=== PATIENT | female | born 1935 | race Caucasian/White ===

== ENCOUNTER → 2017-02-24 | Outpatient (CLI) | payer MEDICARE, BC ==
[~2017-02-24] MED LIST: 1-ME1LIQ PO; ACET1TAB86 PO; AMLO2.5T PO; ASPI-110 PO; ATEN1TAB74 PO; ATEN50TA; ATEN50TA PO; CALTTAB PO; CLOP75TA PO; COQ-100C5 PO; CYCL1TAB29; DONE1TAB3 PO; DONE1TAB63 PO; ESCI10TA PO; EXEN1INJ SQ; FENO160T; FENO50TA PO; FINA5TAB2 PO; GABA300C5; GABA600T; GABA600T PO; HYDR-3516; HYDR-3516 PO; HYDR-3583 PO; KRIL1CAP10 PO; LEVO1TAB50 PO; LOSA50TA; LOSA50TA PO; METF850T PO; NITR.4 SL; PANT40TA3 PO; POTA20TA5 PO; PROBCAP11 PO; RANI150T PO; RANI300T PO; ROSU1TAB8 PO; SENN1TAB PO; SIMV20TA; SIMV20TA PO; STOO100C PO; TAMS0.4C4 PO; TEMA15CA PO; TIOT1AER INH; TRAM50TA; TRAM50TA PO; VITA10004 PO; VITA200017 PO; ZETI10TA5 PO; ZOLP10TA3 PO
[2017-02-24 11:08] LABS: BLOOD, URINE NEG (NEG); COMMENT (UR) CULT NOT INDICATED; CULTURE IF INDICATED CULT NOT INDICATED; GLUCOSE,URINE NEG (NEG); KETONE, URINE NEG (NEG); NITRITE,URINE NEG (NEG); PH, URINE 5.5 (5.0-8.5); SQUAMOUS EPITHELIAL CELL URINE <1 /hpf (0-5); URINE COLOR YELLOW (YELLW/STRAW)
[2017-02-24 11:14] LABS: APTT (PATIENT) 27.1 SEC (24.3-30.1); PROTHROMBIN TIME - PATIENT 10.7 SEC (9.8-11.6)
[2017-02-24 11:19] LABS: AUTOMATED NEUTROPHIL # 2.5 TH/MM3 (1.8-7.7); BASOPHIL % 0.8 % (0.0-2.0); EOSINOPHIL # 0.3 TH/MM3 (0-0.4); HEMATOCRIT 41.8 % (35.0-46.0); HEMO FLAGS DIFF FINAL; LYMPH % 29.6 % (9.0-44.0); LYMPHOCYTE # 1.4 TH/MM3 (1.0-4.8); MEAN CELL VOLUME 97.5 FL (80.0-100.0); MEAN CORPUSCULAR HGB CONC 33.8 % (32.0-36.0); MONO % 11.6 % (0.0-8.0); PLATELET COUNT 181 TH/MM3 (150-450); RED BLOOD COUNT 4.29 MIL/MM3 (4.00-5.30); RED CELL DISTRIBUTION WIDTH 12.6 % (11.6-17.2); WHITE BLOOD COUNT 4.8 TH/MM3 (4.0-11.0)
[2017-02-24 11:34] LABS: ALT (GPT) 25 U/L (10-53); ANION GAP 6 MEQ/L (5-15); AST (GOT) 18 U/L (15-37); BICARBONATE 31.1 MEQ/L (21.0-32.0); BLOOD UREA NITROGEN 15 MG/DL (7-18); CHLORIDE 101 MEQ/L (98-107); GLOMERULAR FILTRATION RATE 93 ML/MIN (>89); GLUCOSE,FASTING 92 MG/DL (74-99); POTASSIUM 4.1 MEQ/L (3.5-5.1); SODIUM (NA) 138 MEQ/L (136-145)
[2017-02-24 11:36] LABS: ALKALINE PHOSPHATASE 96 U/L (45-117); TOTAL BILIRUBIN ADULT 0.4 MG/DL (0.2-1.0)
--- NOTE | 2017-02-24 12:29 | RADRPT ---
EXAM DATE/TIME: 02/24/2017 11:45 [facility] COMPARISON: CHEST PA & LAT, July 19, 2015, 10:45. INDICATIONS : Evaluate for pneumonia, pneumothorax, or communicable disease. Pre op for lumbar laminectomy. MEDICAL HISTORY : None. SURGICAL HISTORY : None. ENCOUNTER: Initial ACUITY: 1 day PAIN SCORE: 0/10 LOCATION: Bilateral chest FINDINGS: The heart and mediastinal structures are normal. The pulmonary vascular pattern is normal. The lung s are clear. There is elevation of the hemidiaphragm. Degenerative changes and scoliosis of the tho racolumbar spine are noted. Cement augmentation has been performed at three levels within the lower thoracic and upper lumbar spine and is unchanged. CONCLUSION: 1. No acute cardiopulmonary disease. 2. Elevation of the right hemidiaphragm. 3. Degenerative changes and scoliosis of the thoracolumbar spine. Aime Padilla MD on February 24, 2017 at 12:15 Board Certified Radiologist. This report was verified electronically.
== END ==
LOC: CPRE 10:22
PROVIDERS: ATTEND Neurological Surgery
DX: Z01.812 Encounter for preprocedural laboratory examination (principal); Z01.811 Encounter for preprocedural respiratory examination; M47.816 Spondylosis without myelopathy or radiculopathy, lumbar region
CPT/HCPCS: 36415; 71020; 80053; 81001; 85025; 85610; 85730

== ENCOUNTER 2017-03-03 08:52 | Inpatient (IN) | payer MEDICARE, BC ==
[~2017-03-03] VITALS: Ht 159 cm; Wt 66.3 kg
[~2017-03-03 08:52] MED LIST changes: -1-ME1LIQ PO; -ACET1TAB86 PO; -AMLO2.5T PO; -ASPI-110 PO; -ATEN1TAB74 PO; -ATEN50TA; -CALTTAB PO; -CLOP75TA PO; -COQ-100C5 PO; -CYCL1TAB29; -DONE1TAB3 PO; -EXEN1INJ SQ; -FENO160T; -FENO50TA PO; -FINA5TAB2 PO; -GABA300C5; -GABA600T; -HYDR-3516; -HYDR-3516 PO; -KRIL1CAP10 PO; -LEVO1TAB50 PO; -LOSA50TA; -METF850T PO; -NITR.4 SL; -PANT40TA3 PO; -POTA20TA5 PO; -PROBCAP11 PO; -RANI150T PO; -RANI300T PO; -ROSU1TAB8 PO; -SENN1TAB PO; -SIMV20TA; -STOO100C PO; -TAMS0.4C4 PO; -TEMA15CA PO; -TIOT1AER INH; -TRAM50TA; -VITA10004 PO; -VITA200017 PO; -ZETI10TA5 PO
[2017-03-03] MEDS ORDERED: LIDOCAINE HCL 1% PF 5 ML AMPULE OTHER ONE (08:55)
[2017-03-03] MEDS ORDERED: LABETALOL HCL 100 MG/20 ML VIAL IV ONE (08:55)
[2017-03-03] MEDS ORDERED: SODIUM CHLOR 0.9% 250 ML INJ 250 ML IV ONE (08:55)
[2017-03-03] MEDS ORDERED: ONDANSETRON HCL 4 MG/2 ML VIAL IV PUSH ONE (08:55)
[2017-03-03] MEDS ORDERED: SUCCINYLCHOLINE CHLORIDE 100 MG/5 ML SYRINGE IV PUSH ONE (08:55)
[2017-03-03] MEDS ORDERED: PHENYLEPH/NS 1000 MCG/10 ML SYR IV ONE (08:55)
[2017-03-03] MEDS ORDERED: NEOSTIGMINE 3 MG/3 ML SYR IV ONE (08:55)
[2017-03-03] MEDS ORDERED: LACTATED RINGER'S 1000 ML INJ 1,000 ML IV ONE (08:55)
[2017-03-03] MEDS ORDERED: ROCURONIUM INJ 50 MG/5 ML SYRINGE IV PUSH ONE (08:55)
[2017-03-03] MEDS ORDERED: SODIUM CHLORID 0.9% 500 ML INJ 500 ML IV ONE (08:55)
[2017-03-03] MEDS ORDERED: PROPOFOL 200 MG/20 ML AMP IV ONE ×2 (08:55)
[2017-03-03] MEDS ORDERED: MIDAZOLAM HCL 2 MG/2 ML VIAL IV ONE (08:55)
[2017-03-03] MEDS ORDERED: PHENYLEPHRINE HCL 10 MG/ML VIAL IV ONE (08:55)
[2017-03-03] MEDS ORDERED: GLYCOPYRROLATE 0.2 MG/ML VIAL IV ONE (08:55)
[2017-03-03] MEDS ORDERED: SODIUM CHLOR 0.9% 1000 ML INJ 1,000 ML IV SCH (09:00)
[2017-03-03] MEDS ORDERED: LACTATED RINGER'S 1000 ML IV PRN (09:30)
[2017-03-03] MEDS ORDERED: INSULIN HUMAN REGULAR 1,000 UNITS/10 ML VIAL SQ PRN (09:30)
[2017-03-03] MEDS ORDERED: METOPROLOL TARTRATE 25 MG TAB PO PRN (09:30)
[2017-03-03] MEDS ORDERED: SODIUM CHLORID 0.9% 500 ML IV PRN (09:30)
[2017-03-03] MEDS ORDERED: VANCOMYCIN HCL 1000 MG ON-CALL/NS 250 ML IV SCH ×2 (09:30)
[2017-03-03] MEDS ORDERED: POVIDONE IODINE 5% (ANTISEPSIS KIT) 4 APPLICATIONS EACH NARE PRN (09:30)
[2017-03-03] MEDS ORDERED: CHLORHEXIDINE GLUCONATE 2 % 1 PACK (2 CLOTHS) TOPICAL PRN (09:30)
[2017-03-03] MEDS ORDERED: ceFAZolin 2 GM PREMIX 50 ML ONE (11:01)
[2017-03-03] MEDS ORDERED: BUPIVACAINE/EPINEPHRINE 0.5% PF 10 ML VIAL ONE ×2 (11:01→11:02)
[2017-03-03] MEDS ORDERED: GENTAMICIN SULFATE 80 MG/2 ML VIAL ONE (11:01)
[2017-03-03] MEDS ORDERED: THROMBIN (TOPICAL) 5,000 UNIT VIAL ONE (11:01)
[2017-03-03] MEDS ORDERED: GELFOAM SIZE 100 ONE (11:01)
[2017-03-03] MEDS ORDERED: ARTIFICIAL TEARS OPTH OINT 3.5 APPLIC/3.5 GM TUBO ONE (12:29)
[2017-03-03] MEDS ORDERED: ACETAMINOPHEN 1000 MG/100 ML 100 ML IV ONE (12:29)
[2017-03-03] MEDS ORDERED: ACETAMINOPHEN/HYDROcodone 325 MG/10 MG TAB PO PRN (14:00)
[2017-03-03] MEDS ORDERED: MORPHINE SULFATE 4 MG/ML INJ IV PUSH PRN ×2 (14:00)
[2017-03-03] MEDS ORDERED: ZOLPIDEM TARTRATE 10 MG TAB PO PRN (14:00)
[2017-03-03] MEDS ORDERED: traMADol HCL 50 MG TAB PO PRN (14:00)
[2017-03-03] MEDS ORDERED: ACETAMINOPHEN 325 MG TAB PO PRN (14:00)
[2017-03-03] MEDS ORDERED: SODIUM CHLORIDE 0.9% FLUSH 10 ML FLUSH IV FLUSH PRN (14:00)
[2017-03-03] MEDS ORDERED: ceFAZolin 2 GM PREMIX 50 ML IV ONE ×2 (15:03→17:54)
[2017-03-03] MEDS ORDERED: ceFAZolin INJ 1,000 MG VIAL IV ONE (17:52)
[2017-03-03] MEDS ORDERED: NALOXONE HCL 0.4 MG/ML AMP IV PRN (18:30)
[2017-03-03] MEDS ORDERED: diphenhydrAMINE HCL 50 MG/ML VIAL IV PRN (18:30)
[2017-03-03] MEDS ORDERED: HYDROmorphone HCL PCA 6 MG/30 ML IV SCH (18:30)
[2017-03-03 18:41] VITALS: O2SAT 98
--- NOTE | 2017-03-03 18:49 | HHI.PR ---
Addendum To [facility] Progress Not Reason for addendum: Additonal documentation (Dr. Farfan and myself attempted to see pt per consult request. However, pt was in surgery and will be seen on 03/04/17.) Kevin Vera Jr. UGO Mar 03, 2017 18:49
[2017-03-03] MEDS: NS + KCL 20 MEQ INJ 1,000 ML IV SCH (19:00)
[2017-03-03] MEDS ORDERED: *morphine SULFATE 8 MG/ML PERIprocedure ONLY ONE (19:03)
[2017-03-03] MEDS ORDERED: *HYDROmorphone PF 1 MG VIAL PERIprocedural Use ONLY ONE (19:14)
[2017-03-03 19:45] VITALS: O2SAT 93
[2017-03-03] MEDS ORDERED: DO NOT ADM ANY ANTICOAGULANT DRUGS PRN (19:45)
--- NOTE | 2017-03-03 20:38 | EKG ---
Date Performed: 03/03/2017 Time Performed: 09:53:31 PTAGE: 82 years EKG: Sinus rhythm NORMAL ECG PREVIOUS TRACING : 11/02/2015 07.42 compared to previous EKG no significant change DOCTOR: Robert Saini Interpretating Date/Time 03/03/2017 20:37:18
--- NOTE | 2017-03-03 20:41 | RADRPT ---
EXAM DATE/TIME: 03/03/2017 13:49 [facility] COMPARISON: No previous studies available for comparison. INDICATIONS : Lumbar fusion, L3-4. MEDICAL HISTORY : None. SURGICAL HISTORY : Lumbar fusions, Lumbar kyphoplasty. ENCOUNTER: Initial ACUITY: 1 day PAIN SCORE: Non-responsive. LOCATION: Lumbar. FINDINGS: Posterior fusion hardware is noted from L3 through L5. CONCLUSION: Posterior lumbar fusion hardware is noted in good position from L3 through L5. Aime Padilla MD on March 03, 2017 at 20:31 Board Certified Radiologist. This report was verified electronically.
[2017-03-03] MEDS ORDERED: GABAPENTIN 300 MG CAP PO SCH (21:00)
[2017-03-03 21:37] VITALS: O2SAT 95
[2017-03-03] MEDS ORDERED: PCA - TOTAL MG DILAUDID DELIVERED PER SHIFT SCH (22:00)
--- NOTE | 2017-03-03 22:22 | HHI.FPPN ---
Addendum to progress note ADDENDUM Reason for addendum: Additonal documentation Additional information Residents paged with FaisalNile at 9:49. Patient is an 82 year old female admitted for L3/L4 laminectomy for spinal stenosis. She is post-op laminectomy and arrived to the floor 45 minutes prior to the HaliCat. Hal[facility] was called for the patient being "out of it", staring off, not responding to questions, and being confused. Her O2 saturation was 89% on 2L nasal cannula at the time. She received 5 mg IV morphine at 19:04 AND dILAUDID 1 MG iv AT 19:17. sHE ALSO RECEIVED dILAUDID 0.5 MG iv VIA layboy operator AT 21:20. RR was 14. Pupils were constricted. Narcan 0.4 mg given once. After Narcan given, she is awake, alert, and oriented to person, place, and situation. Oxygen was increased to 3L via nasal cannula and O2 saturation increased to 95%. She is in no respiratory distress. She reports that she feels fine currently, other than feeling cold and requesting a blanket. Vitals: Initial: 97.7 81 14 89% 2L 99/54 After Narcan: pule 93 95% on 3L 102/55 Physical Exam: General: Awake, alert HEENT: normocephalic, no oral secretions Neck: No tenderness to palpation CV: RRR Lungs: CTAB Abdomen: Soft, nontender, normal bowel sounds Neuro: Awake, alert, CN intact, normal strength and sensation, PERRLA, EOMI, oriented to person, place, time, situation Assessment: 82 year old female with desaturation down to 89% on 2L, pinpoint pupils, decreased respiratory rate shortly after returning to the floor from PACU after laminectomy operation, likely opiate toxicity. Awake, alert, neuro exam intact after administration of Narcan 0.4 mg once. - Dr. Clarke, orthopedic surgeon consulted - Recommend moving patient to [facility] for closer monitoring - Dr. Blancas, protein purification scientist, consulted - Continuous pulse ox and cardiac monitoring - Check CBC, CMP, mg, phos, ABG - Discontinue OBSTETRICS TECH pump. - Tylenol and acteminophen-hydrocodone for pain management, monitor for opiate toxicity Seen and discussed with Jad Devries MD Mar 03, 2017 22:22
[2017-03-03] MEDS ORDERED: ACETAMINOPHEN 1000 MG/100 ML VIAL IV SCH (22:45)
--- NOTE | 2017-03-03 22:46 | PD.CONS ---
[facility] Service Critical Care Medicine Consult Requested By Dr. Clarke Reason for Consult Hypopnea Primary Care Physician Maricruz Dowling DO History of Present Illness 82-year-old female with past mental history of hypertension, hyperlipidemia, chronic back pain, mild dementia, osteoarthritis who underwent L3/L4 decompressive laminectomy 03/03/[address] Clarke. Marla was called tonight due to decreased level of consciousness, sats a decrease to 76% on 3 L nasal cannula. RN is at bedside and she states that when patient arrived from PACU blood pressure was initially 100/54 with sats 93-94 percent on 3 L nasal cannula. Patient received morphine 5 mg IV at 19:04, Dilaudid 1 mg IV at 19: 17. She self administered Dilaudid 0.5 mg IV via RN CLINICAL DOCUMENTATION SPECIALIST at about 21:20. Reportedly about 10 minutes later is when she became unresponsive with sats 76% on 3 L nasal cannula.. [facility] states pupils were pinpoint so he administered Narcan 0.4 mg IV. About 10 minutes later patient was responsive, alert. She is complaining of some low back pain but states that the paresthesias that she usually has in her lower extremities are improved. Her blood pressure is 99/55 and sats are 93% on 3 L nasal cannula. She is being transferred to [facility] for closer observation and Dr. Clarke has consulted critical care medicine. Patient denies chest pain, shortness of breath, headache. Remainder of review of systems negative aside from the aforementioned Review of Systems Musculoskeletal: COMPLAINS OF: Back pain Past Family Social History Allergies: Coded Allergies: Sulfa (Sulfonamide Antibiotics) (Unverified Allergy, Severe, 03/03/17) sulfamethoxazole (Unverified Allergy, Severe, MOUTH SWELL WITH SORES, 03/03) trimethoprim (Unverified Allergy, Severe, MOUTH SWELL WITH SORES, 03/03/17) adhesive (Unverified Allergy, Mild, Rash, 03/03/17) Past Medical History Hypertension Hyperlipidemia Dementia (Patient states she has mild memory deficits. She lives at home with her . Ambulates without assistance. Prepares her own meals and bathes herself.) OA History of tobacco abuse Past Surgical History Kyphoplasty in 1970 Cholecystectomy Ovarian cyst removal Right hip arthroplasty Reported Medications Donepezil 23 mg by mouth daily at bedtime Simvastatin 20 mill grams by mouth daily at bedtime Atenolol 50 g by mouth daily Losartan 50 g by mouth daily Hydrocodone 10/325 one by mouth every 4 hours when necessary pain Tramadol 50 mEq by mouth every 6 hours as needed for pain Gabapentin 600 mg by mouth twice a day Escitalopram 10 mg by mouth daily Zolpidem 10 mg by mouth daily at bedtime Active Ordered Medications Current Medications Medications (Trade) Dose Ordered Sig/Ismael Route Start Time Stop Time Status Last Admin Lactated Ringer's 1,000 ml @ 30 mls/hr Q24H PRN IV 03/03/17 09:30 03/06/17 09:29 03/03/17 10:30 Sodium Chloride 500 ml @ 30 mls/hr [id number] PRN IV 03/03/17 09:30 03/06/17 09:29 (Lopressor) 25 mg FRONT MAKER LOCKSTITCH PRN PO 03/03/17 09:30 03/06/17 09:29 (Betadine 5% Antisepsis Kit) 1 applic FRONT MAKER LOCKSTITCH PRN EACH NARE 03/03/17 09:30 03/06/17 09:29 03/03/17 10:30 (Chlorhexidine 2% Cloth) 3 pack FRONT MAKER LOCKSTITCH PRN TOPICAL 03/03/17 09:30 03/06/17 09:29 03/03/17 09:05 (NovoLIN R INJ) See Protocol Table ... FRONT MAKER LOCKSTITCH PRN SQ 03/03/17 09:30 03/06/17 09:29 Vancomycin HCl 1000 mg/Sodium Chloride 250 ml @ 250 mls/hr FRONT MAKER LOCKSTITCH IV 03/03/17 09:30 03/06/17 09:29 03/03/17 10:50 Potassium Chloride/Sodium Chloride 1,000 ml @ 100 mls/hr Q10H IV 03/03/17 20:00 03/03/17 19:00 (NS Flush) 2 ml UNSCH PRN IV FLUSH 03/03/17 14:00 (NS Flush) 2 ml BID IV FLUSH 03/03/17 21:00 Cefazolin Sodium/ Dextrose 50 ml @ 100 mls/hr Q8H IV 03/04/17 01:00 03/04/17 17:29 (Protonix Inj) 40 mg DAILY IVP 03/04/17 09:00 (Morphine Inj) 2 mg Q2H PRN IV PUSH 03/03/17 14:00 (Morphine Inj) 4 mg Q2H PRN IV PUSH 03/03/17 14:00 (Tylenol) 650 mg Q4H PRN PO 03/03/17 14:00 (Tenormin) 50 mg DAILY PO 03/04/17 09:00 (Aricept) 23 mg HS PO 03/03/17 21:00 (Lexapro) 10 mg DAILY PO 03/04/17 09:00 (Neurontin) 600 mg BID PO 03/03/17 21:00 (Cozaar) 50 mg DAILY PO 03/04/17 09:00 (Ambien) 10 mg HS PRN PO 03/03/17 14:00 (Pravachol) 40 mg HS PO 03/03/17 21:00 Miscellaneous Information ALL NURSING DEPARTME... UNSCH PRN .XX 03/03/17 19:45 03/04/17 19:44 Family History Her brother and father were dose both diagnosed with colon cancer when they were 67 years old Mother had a history of coronary artery disease and had her first myocardial infarction at age 47. Social History [id number] history of smoking. States she's quit smoking 11 years ago Rarely drinks alcohol No illicit drug use and lives at home with her Physical Exam Vital Signs Vital Signs Date Time Temp Pulse Resp B/P (MAP) Pulse Ox O2 Delivery O2 Flow Rate FiO2 03/03/17 21:37 95 3.00 03/03/17 20:30 98.4 80 14 104/54 (71) 94 Nasal Cannula 3 03/03/17 20:15 80 14 105/55 (72) 95 Nasal Cannula 3 03/03/17 20:00 78 10 93/47 (62) 94 Nasal Cannula 3 03/03/17 19:45 81 10 89/45 (60) 92 Nasal Cannula 3 03/03/17 19:30 80 10 92/46 (61) 92 Nasal Cannula 3 03/03/17 19:15 84 12 96/54 (68) 93 Nasal Cannula 3 03/03/17 19:00 87 15 122/58 (79) 99 Simple Mask 6 03/03/17 19:00 12 03/03/17 18:45 85 15 105/55 (72) 96 Simple Mask 6 03/03/17 18:41 98.3 82 14 97/49 (65) 95 Simple Mask 6 03/03/17 10:28 98.6 66 20 137/71 (50) 96 Physical Exam GENERAL: Overweight female sitting up in bed SKIN: Warm and dry. HEAD: Atraumatic. Normocephalic. EYES: Pupils equal and round, 3mm and reactive currently . No scleral icterus. No injection or drainage. ENT: No nasal bleeding or discharge. Mucous membranes pink and moist. NECK: Trachea midline. No JVD. CARDIOVASCULAR: Regular rate and rhythm. No murmurs rubs or gallops. RESPIRATORY: Breathing comfortably. Clear to auscultation. Breath sounds equal bilaterally. On 3 L NC. GASTROINTESTINAL: Abdomen soft, non-tender, nondistended. Bowel sounds present. MUSCULOSKELETAL: Extremities without clubbing, cyanosis, or edema. NEUROLOGICAL: Sleepy but awakens and communicates medical history. Follows commands with 5/5 plantar flexion BLE and intact sedation. Moving all extremities. Reports intact sensation soft touch. Assessment and Plan Problem List: (1) Hypercapnic respiratory failure ICD Code: J96.92 - Respiratory failure, unspecified with hypercapnia (2) Dyslipidemia ICD Code: E78.5 - Hyperlipidemia, unspecified Status: Chronic (3) GERD (gastroesophageal reflux disease) ICD Code: K21.9 - Gastro-esophageal reflux disease without esophagitis Status: Chronic (4) HTN (hypertension) ICD Code: I10 - Essential (primary) hypertension Status: Chronic (5) Chronic pain ICD Code: G89.29 - Other chronic pain Status: Chronic (6) Dementia ICD Code: F03.90 - Unspecified dementia without behavioral disturbance Status: Chronic (7) Tobacco abuse, in remission ICD Code: F17.201 - Nicotine dependence, unspecified, in remission Status: Chronic Assessment and Plan NEURO: Depression Mild Dementia Chronic pain Avoid sedatives as much as possible. Will discontinue Dilaudid RN CLINICAL DOCUMENTATION SPECIALIST for now. Toradol 15 mg IV q 6 hours x4 doses, monitor renal function. Lortab 10 is a home med. Use Lortb 5-10 as needed for pain with morphine for breakthrough. Hold ambien and for now hold Gabapentin 600 mg by mouth twice a day Continue lexapro 10 mg po daily Continue donepezil daily RESP: Acute hypercapneic respiratory failure secondary to sedatives History of tobacco abuse. Patient is currently protecting airway. We'll monitor closely in [facility]. Ordered ABG. Placed on Bipap for hypercapneic resp failure. Duoneb q6 hours /albuterol q2 prn. CV: Hypertension Hyperlipidemia Continue atenolol 50 mg po daily, losartan 50 mg po daily Continue pravastatin 40 mg po daily On LR 30 ML/hr GI: NPO currently while on Bipap. When improved can resume clear liquids per Dr. Clarke' order FEN/RENAL: Obtain BMP now ID: Perioperative cefazolin/vanc per Dr. Clarke HEME: Obtain CBC now ENDO: Euglycemic. PROPH: SCDs for DVT prophylaxis. Hold on pharmacologic DVT prophylaxis until felt to be appropriate per Dr. Clarke. Protonix 40 g IV daily for stress ulcer prophylaxis. ACCESS: Peripheral IV providing adequate access at this time Level III Consult Jina Blancas MD Mar 03, 2017 22:46
[2017-03-03 23:04] LABS: BLOOD GAS BASE EXCESS -1.9 mmol/L (-2-2); BLOOD GAS CARBOXYHEMOGLOBIN 1.1 % (0-4); BLOOD GAS HCO3 25 mmol/L (22-26); BLOOD GAS METHEMOGLOBIN 0.8 % (0-2); BLOOD GAS O2 HGB SATURATION 91 % (90-100); BLOOD GAS OXYGEN CONTENT 15.7 Vol % (12.0-20.0); BLOOD GAS PCO2 60 mmHg (38-42); BLOOD GAS PO2 74 mmHg (61-120); BLOOD GAS TOTAL HGB 12.2 G/DL (12.0-16.0); TEMP CORR TO 98.6
[2017-03-03 23:05] LABS: CRITICAL VALUE YES; DRAW SITE RT RADIAL; LITER FLOW 2 L/M; NUMBER OF ARTERIAL PUNCTURES 1; OXYGEN DEVICE NASAL CANNULA; STAT YES; ULNAR PULSE PRESENT
[2017-03-03] MEDS: SODIUM CHLORIDE 0.9% FLUSH 10 ML FLUSH IV FLUSH SCH (23:08)
[2017-03-03] MEDS: PRAVASTATIN SOD 40 MG TAB PO SCH (23:09)
[2017-03-03] MEDS: DONEPEZIL HCL 23 MG TAB PO SCH (23:12)
[2017-03-03] MEDS: ACETAMINOPHEN/HYDROcodone 325 MG/5 MG TAB PO PRN (23:34)
[2017-03-04] VITALS (15 sets, daily range): BP systolic 100–128; BP diastolic 53–65; PULSE 78–93; RESP 12–25; TEMP 96.3–98.9; O2SAT 93–100
[2017-03-04] MEDS ORDERED: RESP: ALBUTEROL 2.5 MG/3 ML NEB (PRN) NEB
[2017-03-04 00:40] LABS: AUTOMATED NEUTROPHIL # 9.5 TH/MM3 (1.8-7.7); BASOPHIL % 0.1 % (0.0-2.0); HEMATOCRIT 36.4 % (35.0-46.0); HEMO FLAGS DIFF FINAL; LYMPH % 5.1 % (9.0-44.0); LYMPHOCYTE # 0.5 TH/MM3 (1.0-4.8); MEAN CELL VOLUME 98.4 FL (80.0-100.0); MEAN CORPUSCULAR HGB CONC 33.5 % (32.0-36.0); MONO % 3.8 % (0.0-8.0); PLATELET COUNT 183 TH/MM3 (150-450); RED CELL DISTRIBUTION WIDTH 13.2 % (11.6-17.2); WHITE BLOOD COUNT 10.4 TH/MM3 (4.0-11.0)
[2017-03-04] MEDS: ceFAZolin 2 GM PREMIX 50 ML IV SCH ×2 (00:45→08:15)
[2017-03-04 01:02] LABS: MAGNESIUM 1.7 MG/DL (1.5-2.5)
[2017-03-04 02:10] LABS: BLOOD GAS BASE EXCESS -1.8 mmol/L (-2-2); BLOOD GAS HCO3 25 mmol/L (22-26); BLOOD GAS O2 HGB SATURATION 96 % (90-100); BLOOD GAS OXYGEN CONTENT 15.6 Vol % (12.0-20.0); BLOOD GAS PCO2 63 mmHg (38-42); BLOOD GAS PO2 108 mmHg (61-120); BLOOD GAS TOTAL HGB 11.5 G/DL (12.0-16.0); TEMP CORR TO 98.6
[2017-03-04 02:11] LABS: CRITICAL VALUE YES
[2017-03-04 02:12] LABS: FIO2 40 %; OXYGEN DEVICE BIPAP
[2017-03-04 02:13] LABS: DRAW SITE RT RADIAL; NUMBER OF ARTERIAL PUNCTURES 1; STAT NO; ULNAR PULSE PRESENT
--- NOTE | 2017-03-04 03:45 | RADRPT ---
EXAM DATE/TIME: 03/04/2017 02:28 [facility] COMPARISON: CHEST SINGLE AP, November 02, 2015, 0:39. INDICATIONS : Respiratory failure. MEDICAL HISTORY : None. SURGICAL HISTORY : Kyphoplasty. ENCOUNTER: Initial ACUITY: 2 days PAIN SCORE: Non-responsive. LOCATION: Bilateral chest FINDINGS: A single portable frontal view the chest shows a linear area of atelectasis within the right lung bas e. Chronic elevation of the right hemidiaphragm. Left lung is clear. Heart is normal in size. Aorta i s calcified. Prior cement augmentation involving 2 lumbar vertebra. CONCLUSION: Chronic elevation of the right hemidiaphragm with right basilar atelectasis. Charan Millan Jr., MD on March 04, 2017 at 3:43 Board Certified Radiologist. This report was verified electronically.
[2017-03-04] MEDS: RESP: ALBUTEROL 2.5 MG/IPRATROPIUM 0.5 MG NEB (SCH) NEB ×5 (04:00→21:40)
[2017-03-04 05:46] LABS: ALT (GPT) 23 U/L (10-53); ANION GAP 6 MEQ/L (5-15); AST (GOT) 32 U/L (15-37); BICARBONATE 25.7 MEQ/L (21.0-32.0); BLOOD UREA NITROGEN 14 MG/DL (7-18); CHLORIDE 107 MEQ/L (98-107); GLOMERULAR FILTRATION RATE 74 ML/MIN (>89); POTASSIUM 4.7 MEQ/L (3.5-5.1); SODIUM (NA) 139 MEQ/L (136-145)
[2017-03-04 05:48] LABS: ALKALINE PHOSPHATASE 73 U/L (45-117); TOTAL BILIRUBIN ADULT 0.2 MG/DL (0.2-1.0)
[2017-03-04] MEDS: NS + KCL 20 MEQ INJ 1,000 ML IV SCH (06:00)
[2017-03-04 06:55] LABS: BLOOD GAS BASE EXCESS -1.9 mmol/L (-2-2); BLOOD GAS CARBOXYHEMOGLOBIN 1.1 % (0-4); BLOOD GAS HCO3 25 mmol/L (22-26); BLOOD GAS METHEMOGLOBIN 0.8 % (0-2); BLOOD GAS O2 HGB SATURATION 96 % (90-100); BLOOD GAS OXYGEN CONTENT 15.2 Vol % (12.0-20.0); BLOOD GAS PCO2 60 mmHg (38-42); BLOOD GAS PO2 100 mmHg (61-120); BLOOD GAS TOTAL HGB 11.2 G/DL (12.0-16.0); TEMP CORR TO 98.6
[2017-03-04 06:57] LABS: FIO2 40 %
[2017-03-04 06:58] LABS: OXYGEN DEVICE BIPAP
[2017-03-04 06:59] LABS: DRAW SITE RT RADIAL; NUMBER OF ARTERIAL PUNCTURES 1; STAT NO; ULNAR PULSE PRESENT
--- NOTE | 2017-03-04 07:48 | HHI.CCPN ---
Subjective Remarks/Hospital Course 82-year-old female with past mental history of hypertension, hyperlipidemia, chronic back pain, mild dementia, osteoarthritis who underwent L3/L4 decompressive laminectomy 03/03/[address] Clarke. Marla was called tonight due to decreased level of consciousness, sats a decrease to 76% on 3 L nasal cannula. RN is at bedside and she states that when patient arrived from PACU blood pressure was initially 100/54 with sats 93-94 percent on 3 L nasal cannula. Patient received morphine 5 mg IV at 19:04, Dilaudid 1 mg IV at 19: 17. She self administered Dilaudid 0.5 mg IV via CALF SKINNER at about 21:20. Reportedly about 10 minutes later is when she became unresponsive with sats 76% on 3 L nasal cannula.. Faisaljoseluist nurse states pupils were pinpoint so he administered Narcan 0.4 mg IV. About 10 minutes later patient was responsive, alert. She is complaining of some low back pain but states that the paresthesias that she usually has in her lower extremities are improved. Her blood pressure is 99/55 and sats are 93% on 3 L nasal cannula. She is being transferred to [facility] for closer observation and Dr. Clarke has consulted critical care medicine. Patient denies chest pain, shortness of breath, headache. Remainder of review of systems negative aside from the aforementioned SUBJ 03/04: Clinically doing better on BiPAP, oriented x3. ABG ph 7.24 But clinically much improved. D/W Dr. Clarke. Ok up to stretcher chair with TLSO brace. Objective Vital Signs Date Time Temp Pulse Resp B/P (MAP) Pulse Ox O2 Delivery O2 Flow Rate FiO2 03/04/17 06:00 82 03/04/17 04:25 100 BiPAP 03/04/17 04:21 40 03/04/17 04:00 96.3 12 103/59 (74) 03/03/17 21:37 3.00 Intake and Output 03/04/17 03/04/17 03/05/17 08:00 16:00 00:00 Intake Total 637 ml Output Total 470 ml Balance 167 ml Result Diagram: 03/03/17 0012 03/04/17 0448 Other Results Laboratory Tests Test 03/03/17 22:53 03/04/17 02:05 03/04/17 05:56 Blood Gas Puncture Site RT RADIAL RT RADIAL RT RADIAL Blood Gas Patient Temperature 98.6 98.6 98.6 Blood Gas HCO3 25 mmol/L (22-26) 25 mmol/L (22-26) 25 mmol/L (22-26) Blood Gas Base Excess -1.9 mmol/L (-2-2) -1.8 mmol/L (-2-2) -1.9 mmol/L (-2-2) Blood Gas Oxygen Saturation 91 % (90-100) 96 % (90-100) 96 % (90-100) Arterial Blood pH 7.24 (7.380-7.420) 7.22 (7.380-7.420) 7.24 (7.380-7.420) Arterial Blood Partial Pressure CO2 60 mmHg (38-42) 63 mmHg (38-42) 60 mmHg (38-42) Arterial Blood Partial Pressure O2 74 mmHg (61-120) 108 mmHg (61-120) 100 mmHg (61-120) Arterial Blood Oxygen Content 15.7 Vol % (12.0-20.0) 15.6 Vol % (12.0-20.0) 15.2 Vol % (12.0-20.0) Arterial Blood Carboxyhemoglobin 1.1 % (0-4) 1.0 % (0-4) 1.1 % (0-4) Arterial Blood Methemoglobin 0.8 % (0-2) 1.0 % (0-2) 0.8 % (0-2) Blood Gas Hemoglobin 12.2 G/DL (12.0-16.0) 11.5 G/DL (12.0-16.0) 11.2 G/DL (12.0-16.0) Oxygen Delivery Device NASAL CANNULA BIPAP BIPAP Blood Gas Liter Flow 2 L/M Blood Gas Inspired Oxygen 40 % 40 % Objective Remarks GENERAL: Overweight female lying in bed, on BiPAP SKIN: Warm and dry. HEAD: Atraumatic. Normocephalic. EYES: Pupils equal and round, 3mm and reactive currently . No scleral icterus. No injection or drainage. ENT: No nasal bleeding or discharge. Mucous membranes pink and moist. NECK: Trachea midline. No JVD. CARDIOVASCULAR: Regular rate and rhythm. No murmurs rubs or gallops. RESPIRATORY: Breathing comfortably on BiPAP. Clear to auscultation. Breath sounds equal bilaterally. GASTROINTESTINAL: Abdomen soft, non-tender, nondistended. Bowel sounds present. MUSCULOSKELETAL: Extremities without clubbing, cyanosis, or edema. NEUROLOGICAL: AOx3. Follows commands. Moving all extremities. Reports intact sensation soft touch. A/P Assessment and Plan NEURO: CO2 narcosis-resolving Depression Mild Dementia Chronic pain Avoid sedatives as much as possible. DC Dilaudid CALF SKINNER for now. Toradol 15 mg IV q 6 hours x4 doses, monitor renal function. Lortab 10 is a home med. Use Lortb 5-10 as needed for pain with morphine for breakthrough. Hold ambien and for now hold Gabapentin 600 mg by mouth twice a day Continue lexapro 10 mg po daily, Continue donepezil daily RESP: Acute hypercapneic respiratory failure secondary to sedatives History of tobacco abuse. Patient is currently protecting airway. We'll monitor closely in [facility]. Ordered ABG. DC Bipap for hypercapneic resp failure. Duoneb q6 hours /albuterol q2 prn. Aggressive pulmonary toilet CV: Hypertension Hyperlipidemia Continue atenolol 50 mg po daily, losartan 50 mg po daily Continue pravastatin 40 mg po daily On LR 30 ML/hr GI: - NPO. Resume clear liquids per Dr. Clarke' order FEN/RENAL: - Strict intake output ID: -Perioperative cefazolin/vanc per Dr. Clarke HEME: -Monitor CBC ENDO: -Euglycemic. PROPH: SCDs for DVT prophylaxis. Hold on pharmacologic DVT prophylaxis until felt to be appropriate per Dr. Clarke. Protonix 40 g IV daily for stress ulcer prophylaxis. ACCESS: Peripheral IV providing adequate access at this time Level II Thu Wiley MD Mar 04, 2017 07:48
[2017-03-04] MEDS: ATENOLOL 50 MG TAB PO SCH (08:15)
[2017-03-04] MEDS: ESCITALOPRAM OXALATE 10 MG TAB PO SCH (08:15)
[2017-03-04] MEDS: LOSARTAN 50 MG TAB PO SCH (08:15)
[2017-03-04] MEDS: ACETAMINOPHEN/HYDROcodone 325 MG/5 MG TAB PO PRN ×5 (08:15→20:17)
[2017-03-04] MEDS: PANTOPRAZOLE SODIUM 40 MG VIAL IVP SCH (08:15)
[2017-03-04] MEDS: SODIUM CHLORIDE 0.9% FLUSH 10 ML FLUSH IV FLUSH SCH ×2 (08:16→20:17)
[2017-03-04 11:17] LABS: AUTOMATED NEUTROPHIL # 7.5 TH/MM3 (1.8-7.7); BASOPHIL % 0.2 % (0.0-2.0); HEMATOCRIT 32.3 % (35.0-46.0); HEMO FLAGS DIFF FINAL; LYMPH % 9.2 % (9.0-44.0); LYMPHOCYTE # 0.8 TH/MM3 (1.0-4.8); MEAN CELL VOLUME 98.9 FL (80.0-100.0); MEAN CORPUSCULAR HEMOGLOBIN 33.2 PG (27.0-34.0); MEAN CORPUSCULAR HGB CONC 33.6 % (32.0-36.0); MONO % 8.5 % (0.0-8.0); NEUT % 82.1 % (16.0-70.0); PLATELET COUNT 163 TH/MM3 (150-450); RED BLOOD COUNT 3.27 MIL/MM3 (4.00-5.30); RED CELL DISTRIBUTION WIDTH 12.9 % (11.6-17.2); WHITE BLOOD COUNT 9.1 TH/MM3 (4.0-11.0)
--- NOTE | 2017-03-04 14:49 | HHI.NSPN ---
(Jeanie Buchanan) Note Status Status: Progress Note (Jeanie Buchanan) Interval History Interval History 82 y/o female s/p L3-4 laminectomy with interbody arthrodesis using PEEK cage bone graft, posterolateral fixation with transpedicular screws and rods on . She desated and was halicated last night following transfer to the floor. She was trasnfer to [facility] on CPAP and currently doing well with improved O2 sats. Reports minimal surgical pain in bed. (Jeanie Buchanan) Labs, Micro, & Vital Signs Results Date Time Temp Pulse Resp B/P (MAP) Pulse Ox O2 Delivery O2 Flow Rate FiO2 03/04/17 12:00 98.9 88 22 100/57 (71) 97 03/04/17 12:00 83 03/04/17 10:18 98 Nasal Cannula 2.00 03/04/17 08:00 83 03/04/17 08:00 98.4 87 17 110/53 (72) 96 03/04/17 07:00 94 Nasal Cannula 2.00 03/04/17 06:00 82 03/04/17 04:25 100 BiPAP 03/04/17 04:21 100 40 03/04/17 04:00 96.3 78 12 103/59 (74) 100 03/04/17 04:00 78 03/04/17 02:00 82 03/04/17 00:32 98 BiPAP 03/04/17 00:24 97 40 03/04/17 00:00 92 03/04/17 00:00 98.3 92 25 107/58 (74) 95 03/03/17 21:37 95 3.00 03/03/17 20:30 98.4 80 14 104/54 (71) 94 Nasal Cannula 3 03/03/17 20:15 80 14 105/55 (72) 95 Nasal Cannula 3 03/03/17 20:00 78 10 93/47 (62) 94 Nasal Cannula 3 03/03/17 19:45 81 10 89/45 (60) 92 Nasal Cannula 3 03/03/17 19:45 93 3.00 03/03/17 19:30 80 10 92/46 (61) 92 Nasal Cannula 3 03/03/17 19:15 84 12 96/54 (68) 93 Nasal Cannula 3 03/03/17 19:00 87 15 122/58 (79) 99 Simple Mask 6 03/03/17 19:00 12 03/03/17 18:45 85 15 105/55 (72) 96 Simple Mask 6 03/03/17 18:41 98.3 82 14 97/49 (65) 95 Simple Mask 6 03/03/17 18:41 98 Simple Mask 5.00 Constitutional Vital Signs Date Time Temp Pulse Resp B/P (MAP) Pulse Ox O2 Delivery O2 Flow Rate FiO2 03/04/17 12:00 98.9 88 22 100/57 (71) 97 03/04/17 12:00 83 03/04/17 10:18 98 Nasal Cannula 2.00 03/04/17 08:00 83 03/04/17 08:00 98.4 87 17 110/53 (72) 96 03/04/17 07:00 94 Nasal Cannula 2.00 03/04/17 06:00 82 03/04/17 04:25 100 BiPAP 03/04/17 04:21 100 40 03/04/17 04:00 96.3 78 12 103/59 (74) 100 03/04/17 04:00 78 03/04/17 02:00 82 03/04/17 00:32 98 BiPAP 03/04/17 00:24 97 40 03/04/17 00:00 92 03/04/17 00:00 98.3 92 25 107/58 (74) 95 03/03/17 21:37 95 3.00 03/03/17 20:30 98.4 80 14 104/54 (71) 94 Nasal Cannula 3 03/03/17 20:15 80 14 105/55 (72) 95 Nasal Cannula 3 03/03/17 20:00 78 10 93/47 (62) 94 Nasal Cannula 3 03/03/17 19:45 81 10 89/45 (60) 92 Nasal Cannula 3 03/03/17 19:45 93 3.00 03/03/17 19:30 80 10 92/46 (61) 92 Nasal Cannula 3 03/03/17 19:15 84 12 96/54 (68) 93 Nasal Cannula 3 03/03/17 19:00 87 15 122/58 (79) 99 Simple Mask 6 03/03/17 19:00 12 03/03/17 18:45 85 15 105/55 (72) 96 Simple Mask 6 03/03/17 18:41 98.3 82 14 97/49 (65) 95 Simple Mask 6 03/03/17 18:41 98 Simple Mask 5.00 (Jeanie Buchanan) Physical Exam Ms. Murphy is alert, awake and oriented to time, place and person. Speech is fluent. Higher cognitive functions are normal. Cranial nerve examination: pupils equal, round, and reactive to light. Extra- ocular movements are intact. Facial motor are normal and symmetrical. Neck is soft and supple. Muscle strength is 5/5 in all muscle groups of both upper extremities. In the lower extremities, strength is 5/5 in both iliopsoas, quadriceps, hamstrings, plantar flexion, dorsiflexion, and extensor hallicus longus. Sensory examination is intact to light touch in both the upper and lower extremities, symmetrically. There is a bilateral plantar flexion response. (Jeanie Buchanan) Medications Current Medications Current Medications Medications (Trade) Dose Ordered Sig/Ismael Route PRN Reason Start Time Stop Time Status Last Admin Dose Admin Lactated Ringer's 1,000 ml @ 30 mls/hr Q24H PRN IV SEE LABEL COMMENTS 03/03/17 09:30 03/06/17 09:29 03/03/17 10:30 Sodium Chloride 500 ml @ 30 mls/hr [id number] PRN IV SEE LABEL COMMENTS 03/03/17 09:30 03/06/17 09:29 Metoprolol Tartrate (Lopressor) 25 mg CUSHION FORMER PRN PO SEE LABEL COMMENTS 03/03/17 09:30 03/06/17 09:29 Povidone Iodine (Betadine 5% Antisepsis Kit) 1 applic CUSHION FORMER PRN EACH NARE SEE LABEL COMMENTS 03/03/17 09:30 03/06/17 09:29 03/03/17 10:30 Chlorhexidine Gluconate (Chlorhexidine 2% Cloth) 3 pack CUSHION FORMER PRN TOPICAL SEE LABEL COMMENTS 03/03/17 09:30 03/06/17 09:29 03/03/17 09:05 Insulin Human Regular (NovoLIN R INJ) See Protocol Table ... CUSHION FORMER PRN SQ SEE PROTOCOL TABLE 03/03/17 09:30 03/06/17 09:29 Vancomycin HCl 1000 mg/Sodium Chloride 250 ml @ 250 mls/hr CUSHION FORMER IV 03/03/17 09:30 03/06/17 09:29 03/03/17 10:50 Potassium Chloride/Sodium Chloride 1,000 ml @ 50 mls/hr Q20H IV 03/03/17 20:00 03/04/17 06:00 Sodium Chloride (NS Flush) 2 ml UNSCH PRN IV FLUSH FLUSH AFTER USING IV ACCESS 03/03/17 14:00 Sodium Chloride (NS Flush) 2 ml BID IV FLUSH 03/03/17 21:00 03/04/17 08:16 Cefazolin Sodium/ Dextrose 50 ml @ 100 mls/hr Q8H IV 03/04/17 01:00 03/04/17 17:29 03/04/17 08:15 Pantoprazole Sodium (Protonix Inj) 40 mg DAILY IVP 03/04/17 09:00 03/04/17 08:15 Atenolol (Tenormin) 50 mg DAILY PO 03/04/17 09:00 03/04/17 08:15 Donepezil HCl (Aricept) 23 mg HS PO 03/03/17 21:00 03/03/17 23:12 Escitalopram Oxalate (Lexapro) 10 mg DAILY PO 03/04/17 09:00 03/04/17 08:15 Gabapentin (Neurontin) 600 mg BID PO 03/03/17 21:00 Future Hold 03/03/17 23:08 Losartan Potassium (Cozaar) 50 mg DAILY PO 03/04/17 09:00 03/04/17 08:15 Pravastatin Sodium (Pravachol) 40 mg HS PO 03/03/17 21:00 03/03/17 23:09 Miscellaneous Information ALL NURSING DEPARTME... UNSCH PRN .XX SEE LABEL COMMENTS 03/03/17 19:45 03/04/17 19:44 Acetaminophen/ Hydrocodone Bitart ([place] 5-325 Mg) 1 tab Q4H PRN PO PAIN 1-5 despite toradol 03/03/17 23:15 03/04/17 13:13 Acetaminophen/ Hydrocodone Bitart ([place] 5-325 Mg) 2 tab Q4H PRN PO PAIN 6-10 DESPITE TORADOL 03/03/17 23:15 03/04/17 11:04 Albuterol/ Ipratropium (Duoneb Neb) 1 ampule Q6HR NEB NEB 03/04/17 00:00 03/04/17 10:13 Albuterol Sulfate (Albuterol Neb) 2.5 mg Q2HR NEB PRN NEB WHEEZING 03/04/17 00:00 Ketorolac Tromethamine (Toradol Inj) 15 mg Q6H PRN IV PUSH PAIN 03/04/17 02:45 03/09/17 02:44 Morphine Sulfate (Morphine Inj) 1 mg Q2H PRN IV PUSH breakthrough PAIN 8-10 03/04/17 08:00 (Jeanie Buchanan) Medical Decision Making MDM Remarks 82 y/o female s/p L2-3 PLIF on 03/03/17 acute respiratory distress overnight, resolved (Jeanie Buchanan) Plan Plan Remarks cont critical care mgt, clear OOB with PT, don TLSO IS every hour nonchemical dvt prophylaxis cont supportive pain care (Jeanie Buchanan) Attending Statement The patient tolerated the procedure well without complication. The exam, history , and the medical decision-making described in the above note were completed with the assistance of the mid-level provider. I reviewed and agree with the findings presented. I attest that I had a [id number] encounter with the patient on the same day, and personally performed and documented my assessment and findings in the medical record. (Daniel Clarke MD) Jeanie Buchanan Mar 04, 2017 14:49 Daniel Clarke MD Mar 07, 2017 20:48
[2017-03-04] MEDS: KETOROLAC TROMETHAMINE 30 MG/ML (IVP) VIAL IV PUSH PRN ×2 (16:00→22:00)
[2017-03-04] MEDS: DONEPEZIL HCL 23 MG TAB PO SCH (20:15)
[2017-03-04] MEDS: PRAVASTATIN SOD 40 MG TAB PO SCH (20:15)
[2017-03-04] MEDS: MORPHINE SULFATE 4 MG/ML INJ IV PUSH PRN (23:36)
[2017-03-05] VITALS (10 sets, daily range): BP systolic 103–132; BP diastolic 55–85; PULSE 84–101; RESP 13–23; TEMP 97.7–99; O2SAT 82–95
[2017-03-05] MEDS: NS + KCL 20 MEQ INJ 1,000 ML IV SCH (00:02)
[2017-03-05] MEDS: ACETAMINOPHEN/HYDROcodone 325 MG/5 MG TAB PO PRN ×4 (01:43→18:17)
[2017-03-05] MEDS: RESP: ALBUTEROL 2.5 MG/IPRATROPIUM 0.5 MG NEB (SCH) NEB ×4 (04:14→21:37)
[2017-03-05] MEDS: KETOROLAC TROMETHAMINE 30 MG/ML (IVP) VIAL IV PUSH PRN (05:54)
--- NOTE | 2017-03-05 08:08 | HHI.CCPN ---
Subjective Remarks/Hospital Course 82-year-old female with past mental history of hypertension, hyperlipidemia, chronic back pain, mild dementia, osteoarthritis who underwent L3/L4 decompressive laminectomy 03/03/[address] Clarke. Marla was called tonight due to decreased level of consciousness, sats a decrease to 76% on 3 L nasal cannula. RN is at bedside and she states that when patient arrived from PACU blood pressure was initially 100/54 with sats 93-94 percent on 3 L nasal cannula. Patient received morphine 5 mg IV at 19:04, Dilaudid 1 mg IV at 19: 17. She self administered Dilaudid 0.5 mg IV via WINDSCREEN FITTER at about 21:20. Reportedly about 10 minutes later is when she became unresponsive with sats 76% on 3 L nasal cannula.. Didit nurse states pupils were pinpoint so he administered Narcan 0.4 mg IV. About 10 minutes later patient was responsive, alert. She is complaining of some low back pain but states that the paresthesias that she usually has in her lower extremities are improved. Her blood pressure is 99/55 and sats are 93% on 3 L nasal cannula. She is being transferred to [facility] for closer observation and Dr. Clarke has consulted critical care medicine. Patient denies chest pain, shortness of breath, headache. Remainder of review of systems negative aside from the aforementioned SUBJ 03/04: Clinically doing better on BiPAP, oriented x3. ABG ph 7.24 But clinically much improved. D/W Dr. Clarke. Ok up to stretcher chair with TLSO brace. 03/05: Awake alert, no distress. Complaints of not getting enough sleep. otherwise did well overnight Objective Vital Signs Date Time Temp Pulse Resp B/P (MAP) Pulse Ox O2 Delivery O2 Flow Rate FiO2 03/05/17 06:54 21 03/05/17 04:16 95 Nasal Cannula 3.00 03/05/17 04:00 89 03/05/17 04:00 99.0 103/55 (71) 03/04/17 04:21 40 Intake and Output 03/05/17 03/05/17 03/06/17 08:00 16:00 00:00 Intake Total 1340 ml Output Total 1150 ml Balance 190 ml Result Diagram: 03/04/17 1025 03/04/17 4348 Objective Remarks GENERAL: Overweight female lying in bed, in no distress SKIN: Warm and dry. HEAD: Atraumatic. Normocephalic. EYES: Pupils equal and round, 3mm and reactive currently . No scleral icterus. No injection or drainage. ENT: No nasal bleeding or discharge. Mucous membranes pink and moist. NECK: Trachea midline. No JVD. CARDIOVASCULAR: Regular rate and rhythm. No murmurs rubs or gallops. RESPIRATORY: Breathing comfortably on BiPAP. Clear to auscultation. Breath sounds equal bilaterally. GASTROINTESTINAL: Abdomen soft, non-tender, nondistended. Bowel sounds present. MUSCULOSKELETAL: Extremities without clubbing, cyanosis, or edema. NEUROLOGICAL: AOx3. Follows commands. Moving all extremities. A/P Problem List: (1) Hypercapnic respiratory failure ICD Code: J96.92 - Respiratory failure, unspecified with hypercapnia (2) Dyslipidemia ICD Code: E78.5 - Hyperlipidemia, unspecified Status: Chronic (3) GERD (gastroesophageal reflux disease) ICD Code: K21.9 - Gastro-esophageal reflux disease without esophagitis Status: Chronic (4) HTN (hypertension) ICD Code: I10 - Essential (primary) hypertension Status: Chronic (5) Chronic pain ICD Code: G89.29 - Other chronic pain Status: Chronic (6) Dementia ICD Code: F03.90 - Unspecified dementia without behavioral disturbance Status: Chronic (7) Tobacco abuse, in remission ICD Code: F17.201 - Nicotine dependence, unspecified, in remission Status: Chronic Assessment and Plan NEURO: CO2 narcosis-resolved Depression Mild Dementia Chronic pain Avoid sedatives as much as possible. Toradol 15 mg IV q 6 hours x4 doses, monitor renal function. Lortab 10 is a home med. Use Lortb 5-10 as needed for pain with morphine for breakthrough. Hold ambien and hold Gabapentin 600 mg by mouth twice a day Continue lexapro 10 mg po daily, Continue donepezil daily RESP: Acute hypercapnic respiratory failure secondary to sedatives-resolved History of tobacco abuse. Bipap PRN for hypercapneic resp failure. Duoneb q6 hours /albuterol q2 prn. Aggressive pulmonary toilet CV: Hypertension Hyperlipidemia Continue atenolol 50 mg po daily, losartan 50 mg po daily Continue pravastatin 40 mg po daily DC IVF GI: - Diet per Dr. Clarke FEN/RENAL: - Strict intake output ID: -Perioperative cefazolin/vanc per Dr. Clarke HEME: -Monitor CBC ENDO: -Euglycemic. PROPH: SCDs for DVT prophylaxis. Protonix 40 g IV daily for stress ulcer prophylaxis. Chemical DVT prophylaxis when cleared by Dr. Clarke ACCESS: Peripheral IV providing adequate access at this time Level II transfer to Med/Surg Thu Wiley MD Mar 05, 2017 08:08
[2017-03-05] MEDS: MORPHINE SULFATE 4 MG/ML INJ IV PUSH PRN ×3 (08:35→16:29)
[2017-03-05] MEDS: SODIUM CHLORIDE 0.9% FLUSH 10 ML FLUSH IV FLUSH SCH ×2 (09:00→21:00)
[2017-03-05] MEDS: PANTOPRAZOLE SODIUM 40 MG VIAL IVP SCH (09:00)
[2017-03-05] MEDS: LOSARTAN 50 MG TAB PO SCH (09:00)
[2017-03-05] MEDS: ATENOLOL 50 MG TAB PO SCH (09:00)
[2017-03-05] MEDS: ESCITALOPRAM OXALATE 10 MG TAB PO SCH (09:00)
--- NOTE | 2017-03-05 10:18 | HHI.NSPN ---
(Jeanie Buchanan) Note Status Status: Progress Note (Jeanie Buchanan) Interval History Interval History 82 y/o female s/p L3-4 laminectomy with interbody arthrodesis using PEEK cage bone graft, posterolateral fixation with transpedicular screws and rods on . She desated and was halicated last night following transfer to the floor. She was trasnfer to [facility] on CPAP and currently doing well with improved O2 sats. Reports minimal surgical pain in bed. 03/05: sitting up in chair, c/o moderate surgical pain. reports previous dysesthesias and pain in legs has resolved. (Jeanie Buchanan) Labs, Micro, & Vital Signs Results Date Time Temp Pulse Resp B/P (MAP) Pulse Ox O2 Delivery O2 Flow Rate FiO2 03/05/17 08:50 95 Nasal Cannula 2.00 03/05/17 08:50 95 03/05/17 08:00 97.7 90 20 118/85 (96) 93 03/05/17 08:00 90 03/05/17 07:00 94 Nasal Cannula 2.00 03/05/17 06:54 21 03/05/17 04:16 95 Nasal Cannula 3.00 03/05/17 04:00 89 03/05/17 04:00 99.0 89 23 103/55 (71) 93 03/05/17 02:43 18 03/05/17 00:02 93 Nasal Cannula 3.00 03/05/17 00:00 98.7 84 13 111/57 (75) 93 03/05/17 00:00 84 03/04/17 23:41 17 03/04/17 21:41 95 Nasal Cannula 3.00 03/04/17 21:17 18 03/04/17 20:18 93 Nasal Cannula 2.00 03/04/17 20:00 98.6 93 25 128/62 (84) 94 03/04/17 20:00 93 03/04/17 19:00 93 Nasal Cannula 2.00 03/04/17 16:00 98.9 84 15 111/65 (80) 96 03/04/17 16:00 84 03/04/17 12:00 98.9 88 22 100/57 (71) 97 03/04/17 12:00 83 03/04/17 10:18 98 Nasal Cannula 2.00 Constitutional Vital Signs Date Time Temp Pulse Resp B/P (MAP) Pulse Ox O2 Delivery O2 Flow Rate FiO2 03/05/17 08:50 95 Nasal Cannula 2.00 03/05/17 08:50 95 03/05/17 08:00 97.7 90 20 118/85 (96) 93 03/05/17 08:00 90 03/05/17 07:00 94 Nasal Cannula 2.00 03/05/17 06:54 21 03/05/17 04:16 95 Nasal Cannula 3.00 03/05/17 04:00 89 03/05/17 04:00 99.0 89 23 103/55 (71) 93 03/05/17 02:43 18 03/05/17 00:02 93 Nasal Cannula 3.00 03/05/17 00:00 98.7 84 13 111/57 (75) 93 03/05/17 00:00 84 03/04/17 23:41 17 03/04/17 21:41 95 Nasal Cannula 3.00 03/04/17 21:17 18 03/04/17 20:18 93 Nasal Cannula 2.00 03/04/17 20:00 98.6 93 25 128/62 (84) 94 03/04/17 20:00 93 03/04/17 19:00 93 Nasal Cannula 2.00 03/04/17 16:00 98.9 84 15 111/65 (80) 96 03/04/17 16:00 84 03/04/17 12:00 98.9 88 22 100/57 (71) 97 03/04/17 12:00 83 03/04/17 10:18 98 Nasal Cannula 2.00 (Jeanie Buchanan) Physical Exam Ms. Murphy is alert, awake and oriented to time, place and person. Speech is appropriate. Sitting up in chair with TLSO. Cranial nerve examination: pupils equal, round. Extra-ocular movements are intact. Facial motor are normal and symmetrical. Neck is soft and supple. Muscle strength: 5/5 in both iliopsoas, quadriceps, hamstrings, plantar flexion , dorsiflexion. Heart: NSR Respiratory: clear (Jeanie Buchanan) Medications Current Medications Current Medications Medications (Trade) Dose Ordered Sig/Ismael Route PRN Reason Start Time Stop Time Status Last Admin Dose Admin Lactated Ringer's 1,000 ml @ 30 mls/hr Q24H PRN IV SEE LABEL COMMENTS 03/03/17 09:30 03/06/17 09:29 03/03/17 10:30 Sodium Chloride 500 ml @ 30 mls/hr [id number] PRN IV SEE LABEL COMMENTS 03/03/17 09:30 03/06/17 09:29 Metoprolol Tartrate (Lopressor) 25 mg GO GO DANCER PRN PO SEE LABEL COMMENTS 03/03/17 09:30 03/06/17 09:29 Povidone Iodine (Betadine 5% Antisepsis Kit) 1 applic GO GO DANCER PRN EACH NARE SEE LABEL COMMENTS 03/03/17 09:30 03/06/17 09:29 03/03/17 10:30 Chlorhexidine Gluconate (Chlorhexidine 2% Cloth) 3 pack GO GO DANCER PRN TOPICAL SEE LABEL COMMENTS 03/03/17 09:30 03/06/17 09:29 03/03/17 09:05 Insulin Human Regular (NovoLIN R INJ) See Protocol Table ... GO GO DANCER PRN SQ SEE PROTOCOL TABLE 03/03/17 09:30 03/06/17 09:29 Vancomycin HCl 1000 mg/Sodium Chloride 250 ml @ 250 mls/hr GO GO DANCER IV 03/03/17 09:30 03/06/17 09:29 03/03/17 10:50 Potassium Chloride/Sodium Chloride 1,000 ml @ 50 mls/hr Q20H IV 03/03/17 20:00 03/04/17 06:00 Sodium Chloride (NS Flush) 2 ml UNSCH PRN IV FLUSH FLUSH AFTER USING IV ACCESS 03/03/17 14:00 Sodium Chloride (NS Flush) 2 ml BID IV FLUSH 03/03/17 21:00 03/05/17 09:00 Pantoprazole Sodium (Protonix Inj) 40 mg DAILY IVP 03/04/17 09:00 03/05/17 09:00 Atenolol (Tenormin) 50 mg DAILY PO 03/04/17 09:00 03/04/17 08:15 Donepezil HCl (Aricept) 23 mg HS PO 03/03/17 21:00 03/04/17 20:15 Escitalopram Oxalate (Lexapro) 10 mg DAILY PO 03/04/17 09:00 03/05/17 09:00 Gabapentin (Neurontin) 600 mg BID PO 03/03/17 21:00 Future Hold 03/03/17 23:08 Losartan Potassium (Cozaar) 50 mg DAILY PO 03/04/17 09:00 03/04/17 08:15 Pravastatin Sodium (Pravachol) 40 mg HS PO 03/03/17 21:00 03/04/17 20:15 Acetaminophen/ Hydrocodone Bitart ([place] 5-325 Mg) 1 tab Q4H PRN PO PAIN 1-5 despite toradol 03/03/17 23:15 03/04/17 20:17 Acetaminophen/ Hydrocodone Bitart ([place] 5-325 Mg) 2 tab Q4H PRN PO PAIN 6-10 DESPITE TORADOL 03/03/17 23:15 03/05/17 08:59 Albuterol/ Ipratropium (Duoneb Neb) 1 ampule Q6HR NEB NEB 03/04/17 00:00 03/05/17 04:14 Albuterol Sulfate (Albuterol Neb) 2.5 mg Q2HR NEB PRN NEB WHEEZING 03/04/17 00:00 Ketorolac Tromethamine (Toradol Inj) 15 mg Q6H PRN IV PUSH PAIN 03/04/17 02:45 03/09/17 02:44 03/05/17 05:54 Morphine Sulfate (Morphine Inj) 1 mg Q2H PRN IV PUSH breakthrough PAIN 8-10 03/04/17 08:00 03/05/17 08:35 (Jeanie Buchanan) Medical Decision Making MDM Remarks 82 y/o female s/p L2-3 PLIF on 03/03/17 acute respiratory failure, resolved (Jeanie Buchanan) Plan Plan Remarks cleared from critical care transfer out of unit, cont supportive care prn surgical pain, cont IS every hour nonchemical dvt prophylaxis PT, ok OOB and ambulate, TLSO when out of bed (Jeanie Buchanan) Attending Statement The exam, history, and the medical decision-making described in the above note were completed with the assistance of the mid-level provider. I reviewed and agree with the findings presented. I attest that I had a [id number] encounter with the patient on the same day, and personally performed and documented my assessment and findings in the medical record. (Daniel Clarke MD) Jeanie Buchanan Mar 05, 2017 10:18 Daniel Clarke MD Mar 07, 2017 20:49
[2017-03-05] MEDS ORDERED: ACETAMINOPHEN 325 MG TAB PO PRN (20:45)
[2017-03-05] MEDS: DONEPEZIL HCL 23 MG TAB PO SCH ×2 (21:00→21:55)
[2017-03-05] MEDS: PRAVASTATIN SOD 40 MG TAB PO SCH (21:51)
[2017-03-05 22:24] LABS: BLOOD, URINE NEG (NEG); COMMENT (UR) CULT NOT INDICATED; CULTURE IF INDICATED CULT NOT INDICATED; GLUCOSE,URINE NEG (NEG); KETONE, URINE NEG (NEG); NITRITE,URINE NEG (NEG); PH, URINE 6.5 (5.0-8.5); URINE COLOR LIGHT-YELLOW (YELLW/STRAW)
[2017-03-06] VITALS (10 sets, daily range): BP systolic 112–151; BP diastolic 51–72; PULSE 64–97; RESP 16–20; TEMP 98.1–99.7; O2SAT 88–96
[2017-03-06] MEDS: RESP: ALBUTEROL 2.5 MG/IPRATROPIUM 0.5 MG NEB (SCH) NEB ×4 (03:09→20:17)
[2017-03-06] MEDS: ACETAMINOPHEN/HYDROcodone 325 MG/5 MG TAB PO PRN ×2 (05:40→18:41)
[2017-03-06] MEDS: SODIUM CHLORIDE 0.9% FLUSH 10 ML FLUSH IV FLUSH SCH ×2 (09:00→20:30)
[2017-03-06] MEDS: PANTOPRAZOLE SODIUM 40 MG VIAL IVP SCH (09:24)
[2017-03-06] MEDS: ESCITALOPRAM OXALATE 10 MG TAB PO SCH (09:24)
[2017-03-06] MEDS: ATENOLOL 50 MG TAB PO SCH (09:24)
[2017-03-06] MEDS: LOSARTAN 50 MG TAB PO SCH (09:24)
[2017-03-06] MEDS ORDERED: ONDANSETRON HCL 4 MG/2 ML VIAL IV PRN (11:15)
--- NOTE | 2017-03-06 12:03 | HHI.NSPN ---
(Jeanie Buchanan) Note Status Status: Progress Note (Jeanie Buchanan) Interval History Interval History 82 y/o female s/p L3-4 laminectomy with interbody arthrodesis using PEEK cage bone graft, posterolateral fixation with transpedicular screws and rods on . She desated and was halicated last night following transfer to the floor. She was trasnfer to [facility] on CPAP and currently doing well with improved O2 sats. Reports minimal surgical pain in bed. 03/05: sitting up in chair, c/o moderate surgical pain. reports previous dysesthesias and pain in legs has resolved. 03/06: surgical pain slowly improving. c/o nausea (Jeanie Buchanan) Labs, Micro, & Vital Signs Results Date Time Temp Pulse Resp B/P (MAP) Pulse Ox O2 Delivery O2 Flow Rate FiO2 03/06/17 09:29 93 Nasal Cannula 3.00 03/06/17 08:00 98.1 91 16 133/63 (86) 95 03/06/17 04:00 98.2 87 18 131/60 (83) 96 03/06/17 00:00 99.5 97 18 112/51 (71) 94 03/05/17 21:55 101 03/05/17 21:55 95 Nasal Cannula 2.00 03/05/17 21:05 98.7 98 20 122/60 (80) 95 03/05/17 16:34 18 03/05/17 16:25 98.6 98 20 132/60 (84) 82 03/05/17 14:23 20 Constitutional Vital Signs Date Time Temp Pulse Resp B/P (MAP) Pulse Ox O2 Delivery O2 Flow Rate FiO2 03/06/17 09:29 93 Nasal Cannula 3.00 03/06/17 08:00 98.1 91 16 133/63 (86) 95 03/06/17 04:00 98.2 87 18 131/60 (83) 96 03/06/17 00:00 99.5 97 18 112/51 (71) 94 03/05/17 21:55 101 03/05/17 21:55 95 Nasal Cannula 2.00 03/05/17 21:05 98.7 98 20 122/60 (80) 95 03/05/17 16:34 18 03/05/17 16:25 98.6 98 20 132/60 (84) 82 03/05/17 14:23 20 (Jeanie Buchanan) Review of Systems Eyes: DENIES: Blurred vision Respiratory: DENIES: Hemoptysis, Shortness of breath Cardiovascular: DENIES: Chest pain Gastrointestinal: COMPLAINS OF: Nausea Genitourinary: DENIES: Urinary incontinence Musculoskeletal: COMPLAINS OF: Back pain Neurologic: DENIES: Headache, Localized weakness, Paresthesias (Jeanie Buchanan) Physical Exam Ms. Murphy is alert, awake and oriented to time, place and person. Cranial nerve examination: pupils equal, round. Facial motor are normal and symmetrical. Neck is soft and supple. Muscle strength: 5/5 in both iliopsoas, quadriceps, hamstrings, plantar flexion , dorsiflexion. Respiratory: clear Surgical wound is clean and dry, dressing changed at bedside. JHON drain intact with minimal drainage. Abdomen: soft Extremities: no swelling or erythema (Jeanie Buchanan) Medications Current Medications Current Medications Medications (Trade) Dose Ordered Sig/Ismael Route PRN Reason Start Time Stop Time Status Last Admin Dose Admin Sodium Chloride (NS Flush) 2 ml UNSCH PRN IV FLUSH FLUSH AFTER USING IV ACCESS 03/03/17 14:00 Sodium Chloride (NS Flush) 2 ml BID IV FLUSH 03/03/17 21:00 03/06/17 09:00 Pantoprazole Sodium (Protonix Inj) 40 mg DAILY IVP 03/04/17 09:00 03/06/17 09:24 Atenolol (Tenormin) 50 mg DAILY PO 03/04/17 09:00 03/06/17 09:24 Donepezil HCl (Aricept) 23 mg HS PO 03/03/17 21:00 03/05/17 21:55 Escitalopram Oxalate (Lexapro) 10 mg DAILY PO 03/04/17 09:00 03/06/17 09:24 Gabapentin (Neurontin) 600 mg BID PO 03/03/17 21:00 Future Hold 03/03/17 23:08 Losartan Potassium (Cozaar) 50 mg DAILY PO 03/04/17 09:00 03/06/17 09:24 Pravastatin Sodium (Pravachol) 40 mg HS PO 03/03/17 21:00 03/05/17 21:51 Acetaminophen/ Hydrocodone Bitart ([place] 5-325 Mg) 1 tab Q4H PRN PO PAIN 1-5 despite toradol 03/03/17 23:15 03/06/17 05:40 Acetaminophen/ Hydrocodone Bitart ([place] 5-325 Mg) 2 tab Q4H PRN PO PAIN 6-10 DESPITE TORADOL 03/03/17 23:15 03/05/17 18:17 Albuterol/ Ipratropium (Duoneb Neb) 1 ampule Q6HR NEB NEB 03/04/17 00:00 03/05/17 17:23 Albuterol Sulfate (Albuterol Neb) 2.5 mg Q2HR NEB PRN NEB WHEEZING 03/04/17 00:00 Ketorolac Tromethamine (Toradol Inj) 15 mg Q6H PRN IV PUSH PAIN 03/04/17 02:45 03/09/17 02:44 03/05/17 05:54 Morphine Sulfate (Morphine Inj) 1 mg Q2H PRN IV PUSH breakthrough PAIN 8-10 03/04/17 08:00 03/05/17 16:29 Acetaminophen (Tylenol) 650 mg Q4H PRN PO FEVER >100.1 03/05/17 20:45 03/05/17 21:51 Ondansetron HCl (Zofran Inj) 4 mg Q6H PRN IV NAUSEA OR VOMITING 03/06/17 11:15 (Jeanie Buchanan) Medical Decision Making MDM Remarks 82 y/o female s/p L2-3 PLIF on 03/03/17, moderate post-operative pain, improving neuro exam stable acute respiratory failure, resolved (Jeanie Buchanan) Plan Plan Remarks cont supportive care prn surgical pain, cont IS every hour nonchemical dvt prophylaxis cont PT, ok OOB and ambulate, TLSO when out of bed change dressings daily, cont JHON draining today, dc tomorrow Zofran prn N/V dc planning to rehab dw nursing to place call for medical physician for management, critical care signed off (Jeanie Buchanan) Attending Statement The exam, history, and the medical decision-making described in the above note were completed with the assistance of the mid-level provider. I reviewed and agree with the findings presented. I attest that I had a [id number] encounter with the patient on the same day, and personally performed and documented my assessment and findings in the medical record. (Daniel Clarke MD) Jeanie Buchanan Mar 06, 2017 12:03 Daniel Clarke MD Mar 06, 2017 22:35
[2017-03-06] MEDS: KETOROLAC TROMETHAMINE 30 MG/ML (IVP) VIAL IV PUSH PRN (14:33)
[2017-03-06] MEDS: DONEPEZIL HCL 23 MG TAB PO SCH (20:26)
[2017-03-06] MEDS: PRAVASTATIN SOD 40 MG TAB PO SCH (20:26)
[2017-03-07] VITALS: BP 119/58; PULSE 81; RESP 20; TEMP 98.9; O2SAT 98
[2017-03-07] MEDS: ACETAMINOPHEN/HYDROcodone 325 MG/5 MG TAB PO PRN ×2 (01:17→11:29)
[2017-03-07] MEDS: RESP: ALBUTEROL 2.5 MG/IPRATROPIUM 0.5 MG NEB (SCH) NEB ×2 (03:24→09:46)
[2017-03-07 04:00] VITALS: BP 141/62; PULSE 70; RESP 20; TEMP 98.5; O2SAT 98
[2017-03-07 08:00] VITALS: BP 140/64; PULSE 80; RESP 20; TEMP 98.2; O2SAT 97
[2017-03-07] MEDS: PANTOPRAZOLE SODIUM 40 MG VIAL IVP SCH (08:26)
[2017-03-07] MEDS: ESCITALOPRAM OXALATE 10 MG TAB PO SCH (08:26)
[2017-03-07] MEDS: ATENOLOL 50 MG TAB PO SCH (08:26)
[2017-03-07] MEDS: LOSARTAN 50 MG TAB PO SCH (08:26)
[2017-03-07] MEDS: SODIUM CHLORIDE 0.9% FLUSH 10 ML FLUSH IV FLUSH SCH (08:26)
[2017-03-07] MEDS ORDERED: HYDR-3583 PO (09:46)
[2017-03-07 09:50] VITALS: O2SAT 96
--- NOTE | 2017-03-07 10:39 | HHI.NSPN ---
(Jeanie Buchanan) Note Status Status: Progress Note (Jeanie Buchanan) Interval History Interval History 82 y/o female s/p L3-4 laminectomy with interbody arthrodesis using PEEK cage bone graft, posterolateral fixation with transpedicular screws and rods on . She desated and was halicated last night following transfer to the floor. She was trasnfer to [facility] on CPAP and currently doing well with improved O2 sats. Reports minimal surgical pain in bed. 03/05: sitting up in chair, c/o moderate surgical pain. reports previous dysesthesias and pain in legs has resolved. 03/06: surgical pain slowly improving. c/o nausea 03/07: doing well, surgical pain improving (Jeanie Buchanan) Labs, Micro, & Vital Signs Results Date Time Temp Pulse Resp B/P (MAP) Pulse Ox O2 Delivery O2 Flow Rate FiO2 03/07/17 09:50 96 Nasal Cannula 3.00 03/07/17 08:00 98.2 80 20 140/64 (89) 97 03/07/17 04:00 98.5 70 20 141/62 (88) 98 03/07/17 00:00 98.9 81 20 119/58 (78) 98 03/06/17 23:02 87 03/06/17 20:25 90 03/06/17 20:20 Nasal Cannula 2.00 Humidified 03/06/17 20:15 88 03/06/17 20:00 99.7 87 20 124/65 (84) 94 03/06/17 16:00 98.1 89 18 151/72 (98) 95 03/06/17 12:00 98.7 64 16 139/64 (89) 94 Constitutional Vital Signs Date Time Temp Pulse Resp B/P (MAP) Pulse Ox O2 Delivery O2 Flow Rate FiO2 03/07/17 09:50 96 Nasal Cannula 3.00 03/07/17 08:00 98.2 80 20 140/64 (89) 97 03/07/17 04:00 98.5 70 20 141/62 (88) 98 03/07/17 00:00 98.9 81 20 119/58 (78) 98 03/06/17 23:02 87 03/06/17 20:25 90 03/06/17 20:20 Nasal Cannula 2.00 Humidified 03/06/17 20:15 88 03/06/17 20:00 99.7 87 20 124/65 (84) 94 03/06/17 16:00 98.1 89 18 151/72 (98) 95 03/06/17 12:00 98.7 64 16 139/64 (89) 94 (Jeanie Buchanan) Physical Exam Ms. Murphy is alert, awake and oriented to time, place and person. Cranial nerve examination: pupils equal, round. Facial motor are normal and symmetrical. Neck is soft and supple. Muscle strength: 5/5 in both iliopsoas, quadriceps, hamstrings, plantar flexion , dorsiflexion. Respiratory: clear Heart: NSR Surgical wound is clean and dry, dressing changed at bedside. JHON drain intact with minimal drainage. Abdomen: soft Extremities: no swelling or erythema (Jeanie Buchanan) Medications Current Medications Current Medications Medications (Trade) Dose Ordered Sig/Ismael Route PRN Reason Start Time Stop Time Status Last Admin Dose Admin Sodium Chloride (NS Flush) 2 ml UNSCH PRN IV FLUSH FLUSH AFTER USING IV ACCESS 03/03/17 14:00 Sodium Chloride (NS Flush) 2 ml BID IV FLUSH 03/03/17 21:00 03/07/17 08:26 Pantoprazole Sodium (Protonix Inj) 40 mg DAILY IVP 03/04/17 09:00 03/07/17 08:26 Atenolol (Tenormin) 50 mg DAILY PO 03/04/17 09:00 03/07/17 08:26 Donepezil HCl (Aricept) 23 mg HS PO 03/03/17 21:00 03/06/17 20:26 Escitalopram Oxalate (Lexapro) 10 mg DAILY PO 03/04/17 09:00 03/07/17 08:26 Gabapentin (Neurontin) 600 mg BID PO 03/03/17 21:00 Future Hold 03/03/17 23:08 Losartan Potassium (Cozaar) 50 mg DAILY PO 03/04/17 09:00 03/07/17 08:26 Pravastatin Sodium (Pravachol) 40 mg HS PO 03/03/17 21:00 03/06/17 20:26 Acetaminophen/ Hydrocodone Bitart ([place] 5-325 Mg) 1 tab Q4H PRN PO PAIN 1-5 despite toradol 03/03/17 23:15 03/06/17 18:41 Acetaminophen/ Hydrocodone Bitart ([place] 5-325 Mg) 2 tab Q4H PRN PO PAIN 6-10 DESPITE TORADOL 03/03/17 23:15 03/07/17 01:17 Albuterol/ Ipratropium (Duoneb Neb) 1 ampule Q6HR NEB NEB 03/04/17 00:00 03/07/17 09:46 Albuterol Sulfate (Albuterol Neb) 2.5 mg Q2HR NEB PRN NEB WHEEZING 03/04/17 00:00 Morphine Sulfate (Morphine Inj) 1 mg Q2H PRN IV PUSH breakthrough PAIN 8-10 03/04/17 08:00 03/05/17 16:29 Acetaminophen (Tylenol) 650 mg Q4H PRN PO FEVER >100.1 03/05/17 20:45 03/05/17 21:51 Ondansetron HCl (Zofran Inj) 4 mg Q6H PRN IV NAUSEA OR VOMITING 03/06/17 11:15 (Jeanie Buchanan) Medical Decision Making MDM Remarks 82 y/o female s/p L2-3 PLIF on 03/03/17, moderate post-operative pain, improving neuro exam stable acute respiratory failure, resolved (Jeanie Buchanan) Plan Plan Remarks cont supportive care - pain control prn cont IS every hour nonchemical dvt prophylaxis cont PT, encouraged mobilization TLSO when out of bed cont daily dressings changes dc JHON drain Zofran prn N/V dc to rehab when medically cleared (Jeanie Buchanan) Attending Statement The exam, history, and the medical decision-making described in the above note were completed with the assistance of the mid-level provider. I reviewed and agree with the findings presented. I attest that I had a [id number] encounter with the patient on the same day, and personally performed and documented my assessment and findings in the medical record. (Daniel Clarke MD) Jeanie Buchanan Mar 07, 2017 10:39 Daniel Clarke MD Mar 07, 2017 20:27
--- NOTE | 2017-03-07 10:43 | HHI.DCPOC ---
Discharge Care Plan Diagnosis: (1) S/P lumbar spinal fusion Goals to Promote Your Health * To prevent worsening of your condition and complications * To maintain your health at the optimal level Directions to Meet Your Goals Take your medications as prescribed Follow your dietary instruction Follow activity as directed Keep your appointments as scheduled Take your immunizations and boosters as scheduled If your symptoms worsen call your PCP, if no PCP go to Urgent Care Center or Emergency Room Smoking is Dangerous to Your Health. Avoid second hand smoke Call the 24-hour hour crisis hotline for domestic abuse at Jeanie Buchanan Mar 07, 2017 10:43
--- NOTE | 2017-03-07 10:43 | HHI.DS ---
Discharge Summary Admission Date Mar 03, 2017 at 08:52 Discharge Date: Mar 07, 2017 Admitting Diagnosis s/p lumbar fusion (1) S/P lumbar spinal fusion ICD Code: Z98.1 - Arthrodesis status Brief History Ms Murphy is a 82 year-old female who presented with intractable mechanical back pain and radha evidence of lower extremity radiculopathy. She had history of a prior laminectomy and fusion at L4 5 with excellent results, but she has developed adjacent level degeneration with spondylolisthesis. She failed maximum nonsurgical management including multiple modalities of conservative treatment as well as pain management interventions by an interventional pain specialist. The patient has undergone a previous surgical procedure. A redo surgical decompression and arthrodesis were indicated as a last resort. CBC/BMP: 03/04/17 1025 03/04/17 0448 Significant Findings Laboratory Tests Test 03/05/17 22:00 Urine Leukocyte Esterase TRACE (NEG) Imaging Last Impressions Chest X-Ray 03/04/17 0000 Signed Impressions: Service Date/Time: February 02:28 - CONCLUSION: Chronic elevation of the right hemidiaphragm with right basilar atelectasis. Charan Millan Jr., MD Lumbar Spine X-Ray 03/03/17 0000 Signed Impressions: Service Date/Time: Friday, March 03, 2017 13:49 - CONCLUSION: Posterior lumbar fusion hardware is noted in good position from L3 through L5. Aime Padilla MD Hospital Course Ms. Murphy L3-L4 laminectomy, interbody arthrodesis using PEEK cage and autologous bone graft, L4-5 instrumental fixation using transpedicular screws and rods, L3-4 posterolateral fusion using autologous bone graft and rods, microsurgical dissection on Mar 03, 2017 for L3-4 spondylosis and spondylolisthesis. Later that evening she desated and was halicated. She was transfer to [facility] and evaluated by critical care, she was placed on CPAP and had done well with improved O2 saturation. Her surgical pain controlled, she remained medically stable and was discharged to rehab in stable conditions. Pt Condition on Discharge: Stable Discharge Disposition: Rehab Inpatient Discharge Instructions DIET: Follow Instructions for: Heart Healthy Diet ACTIVITIES You can perform: Weight Bearing As Kathie ADDITIONAL Activity Instructio: Avoid strenuous activities, heavy lifting, overhead activities, repetitive bending, twisting, pushing, pulling or any activities which might result in stress over the spine. Avoid situtation that will put at risk for falls. Use assistive device as needed for walking. Wear TLSO brace when out of bed. Continued Medications: Atenolol (Atenolol) 50 Mg Tab 50 MG PO DAILY for Blood Pressure Management, #30 TAB 0 Refills Donepezil (Donepezil) 23 Mg Tab 23 MG PO HS for Dementia, #30 TAB 0 Refills Do not split, crush or chew. Escitalopram (Escitalopram) 10 Mg Tab 10 MG PO DAILY, #30 TAB 0 Refills Gabapentin (Gabapentin) 600 Mg Tab 600 MG PO BID, #60 TAB 0 Refills Hydrocodone-Acetaminophen (Hydrocodone-Acetaminophen) 10-325 mg Tab 1 TAB PO Q4H PRN for PAIN for 30 Days, #180 TAB 0 Refills (This prescription has been renewed) Losartan (Losartan) 50 Mg Tab 50 MG PO DAILY for Blood Pressure Management, #30 TAB 0 Refills Simvastatin (Simvastatin) 20 Mg Tab 20 MG PO HS for Cholesterol Management, #30 TAB 0 Refills Tramadol (Tramadol) 50 Mg Tab 50 MG PO Q6H PRN for PAIN, TAB 0 Refills Zolpidem (Zolpidem) 10 Mg Tab 10 MG PO HS PRN for INSOMNIA, TAB 0 Refills Jeanie Buchanan Mar 07, 2017 10:43
[2017-03-07 12:00] VITALS: BP 130/60; PULSE 57; RESP 20; TEMP 98.6; O2SAT 99
--- NOTE | 2017-03-11 14:31 | PD.OP ---
Operative Report Date of Surgery: Mar 03, 2017 Preoperative Diagnosis: L3-4 spondylosis and spondylolisthesis Postoperative Diagnosis: L3-4 spondylosis and spondylolisthesis Procedure: L3-L4 laminectomy, interbody arthrodhesis using PEEK cage and autologous bone graft, L4-5 instrumental fixation using transpedicular screws and rods, L3-4 posterolateral fusion using autologous bone graft and rods. Microsurgical dissection Anesthesia: general Surgeon: Daniel Clarke Felt Hat Steamer(s): Geno Eldridge Operation and Findings: INDICATIONS FOR PROCEDURE Ms Murphy is a 82 year-old female who presented with intractable mechanical back pain and radha evidence of lower extremity radiculopathy. She had history of a prior laminectomy and fusion at L4 5 with excellent results, but she has developed adjacent level degeneration with spondylolisthesis. She failed maximum nonsurgical management including multiple modalities of conservative treatment as well as pain management interventions by an interventional pain specialist. The patient has undergone a previous surgical procedure. A redo surgical decompression and arthrodhesis were indicated as a last resort. The [id number] details of the procedure, indications, alternatives, risks and potential complications were fully discussed with the patient. The patient fully understood. All the questions were answered. No guarantees were given. The patient voiced requesting the procedure and provided informed consents. The patient was offered the alternative of delaying the procedure and continuing with nonsurgical management. Prior to the procedure, the surgical incision was marked in the preoperative surgical holding room, and the procedure, risks, and potential complications revisited with the patient. Placement of electrodes for intraoperative neurophysiological monitoring was completed. The patient was taken to the operative room, and following induction of general anesthesia, endotracheal intubation was performed. A Dozier catheter, bilateral JORDON hose and sequential compression devices were placed and kept throughout the procedure. The patient was positioned prone, over a Tha table over a bolsters. All pressure in the preoperative surgical holding room points were carefully padded with eggcrate and gel mattress. The eyes were tapped shut after ointment was applied by the anesthesiologist to prevent corneal abrasion. A Jesus hugger was placed over the expossed lower body to maintain control of the core body temperature. The electrophysiological team placed the needles and electrodes in their proper location and baseline SSEP's and motor evoked potentials were registered. The entrance to each pedicles was marked using a C arm. The lumbar region was prepped and draped in the usual sterile fashion. The surgical procedure was performed in several steps as follow: SURGICAL APPROACH Once the patient was positioned, a localizing cross-table lateral x-ray was performed with a C-arm. Two paramedian small incisions were outlined on the skin approximately 3cm from the midline. The skin incisions were made with a # 10 blade. Small bleeders were controlled with the cautery. The dissection was then carried out into deeper planes and through the thoracolumbar fascia with a Bovie. The intermuscular septum was identified and the muscles were blunted dissected along the septum. The facets and transverse process of L3-L4 were exposed and the proper anatomical landmarks were identified. A microsurgical self-retaining retractor was placed on the incision, and a localizing lateralizing cross-table x-ray was performed with an instrument underneath a lamina of the lumbar spine. The prior instrumentation was carefully exposed and a self-retaining retractor was placed on the incision. At this point of the procedure, the cross link of the prior instrumentation was carefully exposed free of scar tissue and the cross link was removed. Then, the caps of the previously placed screws were sequentially removed allowing removal of the rods. INSTRUMENTAL FIXATION At this point in the procedure, placement of bilateral transpedicular screws was necessary for stabilization of the spine. Initially, the entry point for the screw was selected anatomically at the junction of the facet, with the transverse process, and the pars interarticularis at L3. This was started with a Giamshetti needle, followed by the use of an cho wire, and then a tap was used to create the threads for the screws. Finally bilateral transpedicular screws were carefully placed bilaterally at L3-L4 under fluoroscopic visualization. An appropriate purchase was achieved with all screws. The position of each screw was assessed anatomically with an AP, lateral, oblique Xrays. An intraoperative scan view of the spine was then performed using the iso -centric c-arm. Each screw was then assessed electrophysiologically stimulating each screw with a nerve stimulator. SURGICAL DECOMPRESSION There was significant mass effect with compression of the neural structures. In order to relieve neural compression, it was necessary to perform a decompressive laminectomy, with decompression of the spinal canal and bilateral lateral recesses. Note that the scope of such decompression was significantly more extensive than the minimal exposure necessary to perform an interbody fusion, as there was extreme facet arthropathy with near complete collapse of the disk spaces and severe stenosis cause by the hyperthrophic joint facets. At this point of the procedure the operative microscope was draped in the usual sterile fashion and brought to the field. The rest of the surgical procedure was performed using microdissection technique with the exception of the closure. Under the operating microscope, a decompressive laminectomy was carried out at L3-L4as follow: The laminae, base of the spinous processes and facets were carefully drilled exposing the ligamentum flavum. The facets were abnormal with severe spondylolisthesis and gross mechanical instability. A large disk protusion was compressing the neural structures and exiting nerve roots. A near complete facetectomy was necessary resulting in further mechanical instability. The ligamentum flavum appeared hypertrophic, resulting on mass effect on the dorsal surface of the neural structures. The superior free border of the ligamentum flavum was elevated with a ligament dissector and the ligamentum flavum was removed with a 3 and 4 mm Kerrison forceps. The ligament was very adherent to the dural sac and during the dissection, ans extreme care was taken during the dissection. The exiting nerve roots were identified, and a wide foraminotomy was performed with a Kerrison in their trajectory towards the neural foramen. Epidural veins located laterally to the dural sac were coagulated with the bipolar cautery, and then incised using microscissors. Gentle medial retraction of the dural sac allowed me to expose the disc space for the discectomy. Upon completion of the discectomy, an excellent decompression of the neural structures was achieved. Increased motion was noted thorough the procedure, which was consistent with mechanical instability. INTERBODY ARTHRODHESIS In order to correct the narrowing of the disk space and maintain distraction of the space, and to achieve a solid interbody fusion, it was necessary the insertion of an interbody device into the disk space. Otherwise, the disk space would collapse, compromising the result of the surgical procedure. At this point of the procedure, the annulus fibrosus of the disk was carefully coagulated with a bipolar cautery and incised using an 11 bladed knife. Then, a microdiscectomy was carried out in a standard fashion using a combination of straight and up-biting pituitary forceps. A reverse angle curette was applied underneath the posterior longitudinal ligament, and used to push the disk fragments into the disk space, so they can be safely removed with a pituitary forceps. Once the discectomy was completed, it was necessary to decorticate the endplates, in order to eliminate the cartilaginous endplate and to expose healthy bone appropriate to perform the interbody fusion. The endplates at L4- L5 were then thoroughly decorticated using increasing size bone viri and ring curets, eliminating the cartilaginous fragments from both, the superior and inferior endplates. A disk space distractor was applied to the pedicle screws and gentle distraction was applied. This maneuver was assisted by the use of a disk distractor. Increased motility was noted at the disk, which was consistent with instability due to facet arthropathy. Once a thorough preparation of the disk space was achieved, the disk space was irrigated with antibiotic solution, and the interbody fusion was performed by carefully impacting PPEK cages filled with autologous iliac crest bone graft. The use of several shoe impactors with different angulation, allowed me for an excellent, proper position of the interbody cage. A solid position of the cage with good purchase was achieved. The position of the cages were assessed anatomically with a probe and radiologically with the C-arm. POSTEROLATERAL FUSION The posterolateral fusion is a critical component to the procedure, to prevent future fatigue and failure of the instrumental fixation. Initially, the transverse processes of the vertebral bodies, lateral surface of the facets and the lateral gutters of the spine were carefully cleaned, eliminating all soft tissue and muscle attachments. The area was then irrigated with a large amount of antibiotic solution. Subsequently, the transverse processes, lateral surface of the facets, and lateral gutters of the spine were thoroughly decorticated using the TPS drill with a 5mm cutting mich, exposing cancellous bone, in preparation for the posterolateral fusion. The incision was again irrigated with antibiotic solution. Then, the posterolateral fusion was then performed by carefully packing the lateral gutters of the spine at L3-L4 with autologous bone combined with demineralized bone matrix. I packed as much bone as possible. COMPLETION OF THE INSTRUMENTATION AND CLOSURE The rods were brought to the field, applied to all the screws, and the screw caps were sequentially applied. Compression was performed between the pedicle screws, and final tightening of the screws was completed using a torque wrench. The incision was again thoroughly irrigated with several liters of antibiotic solution, and hemostasis secured with the bipolar cautery. A Valsalva Maneuver performed by the anesthesiologist failed to show any evidence of cerebrospinal fluid leak or bleeding. A 7 mm Tha-Sanchez drain was left in the epidural space and externalized through a separate stab incision. The incision was then closed in planes. 0 Vicryl was used in an interrupted fashion to close the thoracolumbar fascia and the superficial fascia. The subcutaneous tissue was then approximated using 3-0 Vicryl in an interrupted fashion. Special care was taken to avoid space. The skin was then closed with 4-0 Vicryl in a running, subcuticular fashion. Dermabond was applied to the skin. Each plane of closure was irrigated with antibiotic solution. At the end of the procedure the sponge, needle and instrument counts were all correct. Estimated blood loss was 150 cc. No blood transfusion was given. The entire procedure was performed using continuous electrophysiological monitoring of the somatosensorial evoked potentials and EMG. The patient received prophylactic antibiotics. The patient was then extubated and transferred to the recovery room in stable condition. Daniel Clarke MD Mar 11, 2017 14:31
[2017-03-12] MEDS ORDERED: GABA600T PO (11:23)
[2017-03-12] MEDS ORDERED: SIMV20TA PO (11:23)
[2017-03-12] MEDS ORDERED: SENN1TAB PO (11:23)
[2017-03-12] MEDS ORDERED: ACET1TAB86 PO (11:23)
[2017-03-12] MEDS ORDERED: POTA20TA5 PO (11:23)
[2017-03-12] MEDS ORDERED: HYDR-3516 PO (11:23)
[2017-03-12] MEDS ORDERED: ESCI10TA PO (11:23)
[2017-03-12] MEDS ORDERED: LOSA50TA PO (11:23)
[2017-03-12] MEDS ORDERED: DONE1TAB63 PO (11:23)
[2017-03-12] MEDS ORDERED: ZOLP10TA3 PO (11:23)
[2017-03-12] MEDS ORDERED: ATEN50TA PO (11:23)
[2017-03-12] MEDS ORDERED: PANT40TA3 PO (11:23)
[2017-03-15 09:38] LABS: CRITICAL VALUE YES
[2017-03-23] MEDS ORDERED: GABA600T PO (11:17)
== END 2017-03-07 14:00 | DRG 459 ==
LOC: HSDI 08:52 → N05A 20:56 → N03A 22:36 → N05A 03-05 15:36
PROVIDERS: ADMIT Neurological Surgery; ATTEND Neurological Surgery
PROC: 5A09457 Assistance with Respiratory Ventilation, 24-96 Consecutive Hours, Continuous Positive Airway Pressure (ICD-10-PCS; 2017-03-03)
PROC: 0SB20ZZ Excision of Lumbar Vertebral Disc, Open Approach (ICD-10-PCS; 2017-03-03)
PROC: 0SG0071 Fusion of Lumbar Vertebral Joint with Autologous Tissue Substitute, Posterior Approach, Posterior Column, Open Approach (ICD-10-PCS; 2017-03-03)
PROC: 0SG00A1 (ICD-10-PCS; principal; 2017-03-03 12:48)
DX: M43.16 Spondylolisthesis, lumbar region (principal); J96.02 Acute respiratory failure with hypercapnia; M48.06 Spinal stenosis, lumbar region; F03.90 Unspecified dementia, unspecified severity, without behavioral disturbance, psychotic disturbance, mood disturbance, and anxiety; M51.36 Other intervertebral disc degeneration, lumbar region; M46.96 Unspecified inflammatory spondylopathy, lumbar region; M47.816 Spondylosis without myelopathy or radiculopathy, lumbar region; I10 Essential (primary) hypertension; E78.5 Hyperlipidemia, unspecified; R40.4 Transient alteration of awareness; F32.9 Major depressive disorder, single episode, unspecified; G62.9 Polyneuropathy, unspecified; K21.9 Gastro-esophageal reflux disease without esophagitis; T40.2X5A Adverse effect of other opioids, initial encounter; Y92.238 Other place in hospital as the place of occurrence of the external cause; Z87.891 Personal history of nicotine dependence; Z88.2 Allergy status to sulfonamides; Z96.641 Presence of right artificial hip joint; Z98.1 Arthrodesis status
CPT/HCPCS: 36600; 71010; 72100; 76000; 80053; 81001; 82805; 82948; 83735; 84100; 85025; 86850; 86900; 86901; 87641; 93005; 94002; 94150; 94640; 94664; C1713; C9113; J0131; J0330; J0690; J1170; J1580; J1885; J2250; J2270; J2310; J2370; J2405; J2710; J3010; J3370; J3480; J7040; J7050; J7120; L0200; L0484

== ENCOUNTER 2017-06-18 09:56 | Observation (INO) | payer MEDICARE, BC ==
[~2017-06-18] VITALS: Ht 160 cm; Wt 67.0 kg
[~2017-06-18 09:56] MED LIST changes: +ACET325T15 PO; -ESCI10TA PO; +HYDR-3516 PO; -HYDR-3583 PO; +TRAM50 PO; -ZOLP10TA3 PO
[2017-06-18] MEDS ORDERED: METOPROLOL TARTRATE 25 MG TAB PO PRN (10:30)
[2017-06-18] MEDS ORDERED: CHLORHEXIDINE GLUCONATE 2 % 1 PACK (2 CLOTHS) TOPICAL PRN (10:30)
[2017-06-18] MEDS ORDERED: POVIDONE IODINE 5% (ANTISEPSIS KIT) 4 APPLICATIONS EACH NARE PRN (10:30)
[2017-06-18] MEDS ORDERED: LACTATED RINGER'S 1000 ML IV PRN (10:30)
[2017-06-18] MEDS ORDERED: SODIUM CHLORID 0.9% 500 ML IV PRN (10:30)
[2017-06-18] MEDS ORDERED: ceFAZolin 2 GM PREMIX 50 ML IV SCH (10:45)
[2017-06-18] MEDS ORDERED: ZOLP10TA3 PO (10:53)
[2017-06-18] MEDS ORDERED: GABA600T PO (10:53)
[2017-06-18] MEDS ORDERED: LOSA50TA PO (10:53)
[2017-06-18] MEDS ORDERED: ESCI10TA PO (10:53)
[2017-06-18 10:57] LABS: AUTOMATED NEUTROPHIL # 4.6 TH/MM3 (1.8-7.7); BASOPHIL % 0.7 % (0.0-2.0); EOSINOPHIL # 0.4 TH/MM3 (0-0.4); EOSINOPHIL % 5.7 % (0.0-4.0); HEMATOCRIT 42.4 % (35.0-46.0); HEMOGLOBIN 14.6 GM/DL (11.6-15.3); LYMPH % 17.6 % (9.0-44.0); LYMPHOCYTE # 1.2 TH/MM3 (1.0-4.8); MEAN CELL VOLUME 95.3 FL (80.0-100.0); MEAN CORPUSCULAR HEMOGLOBIN 32.8 PG (27.0-34.0); MEAN CORPUSCULAR HGB CONC 34.5 % (32.0-36.0); MONO % 8.7 % (0.0-8.0); MONOCYTE # 0.6 TH/MM3 (0-0.9); NEUT % 67.3 % (16.0-70.0); PLATELET COUNT 197 TH/MM3 (150-450); RED BLOOD COUNT 4.45 MIL/MM3 (4.00-5.30); RED CELL DISTRIBUTION WIDTH 15.3 % (11.6-17.2); WHITE BLOOD COUNT 6.8 TH/MM3 (4.0-11.0)
[2017-06-18 11:04] LABS: INTERNATIONAL NORMALIZED RATIO 1.1 RATIO; PROTHROMBIN TIME - PATIENT 10.7 SEC (9.8-11.6)
[2017-06-18 11:24] LABS: ALBUMIN 3.7 GM/DL (3.4-5.0); ALT (GPT) 18 U/L (10-53); AST (GOT) 12 U/L (15-37); BICARBONATE 31.8 MEQ/L (21.0-32.0); BLOOD UREA NITROGEN 14 MG/DL (7-18); CALCIUM 9.5 MG/DL (8.5-10.1); CHLORIDE 100 MEQ/L (98-107); CREATININE 0.59 MG/DL (0.50-1.00); GLOMERULAR FILTRATION RATE 98 ML/MIN (>89); GLUCOSE,RANDOM 87 MG/DL (74-106); SODIUM (NA) 138 MEQ/L (136-145)
[2017-06-18 11:26] LABS: ALKALINE PHOSPHATASE 123 U/L (45-117); TOTAL BILIRUBIN ADULT 0.6 MG/DL (0.2-1.0); TOTAL PROTEIN 7.7 GM/DL (6.4-8.2)
[2017-06-18] MEDS ORDERED: GLYCOPYRROLATE 1 MG/5 ML SYRINGE IV PUSH ONE (12:00)
[2017-06-18] MEDS ORDERED: ePHEDrine/NS 25 MG/5 ML SYRINGE IV ONE (12:00)
[2017-06-18] MEDS ORDERED: PHENYLEPH/NS 1000 MCG/10 ML SYR IV ONE (12:00)
[2017-06-18] MEDS ORDERED: LACTATED RINGER'S 1000 ML INJ 1,000 ML IV ONE (12:00)
[2017-06-18] MEDS ORDERED: ROCURONIUM INJ 50 MG/5 ML VIAL IV ONE (12:00)
[2017-06-18] MEDS ORDERED: SODIUM CHLORIDE 0.9% INJ 250 ML IV ONE (12:00)
[2017-06-18] MEDS ORDERED: DEXAMETHASONE SOD PHOS 4 MG/ML VIAL IV ONE (12:00)
[2017-06-18] MEDS ORDERED: PHENYLEPHRINE HCL 10 MG/ML VIAL IV ONE (12:00)
[2017-06-18] MEDS ORDERED: LIDOCAINE HCL 1% PF 5 ML SYRINGE OTHER ONE (12:00)
[2017-06-18] MEDS ORDERED: ONDANSETRON HCL 4 MG/2 ML VIAL IV PUSH ONE (12:00)
[2017-06-18] MEDS ORDERED: PROPOFOL 200 MG/20 ML AMP IV ONE (12:00)
[2017-06-18] MEDS ORDERED: BUPIVACAINE/EPINEPHRINE 0.5% 50 ML VIAL ONE (13:08)
[2017-06-18] MEDS ORDERED: ACETAMINOPHEN 1000 MG/100 ML 100 ML IV ONE (13:43)
[2017-06-18] MEDS ORDERED: RESP: ALBUTEROL 2.5 MG/3 ML NEB (PRN) INH (15:30)
[2017-06-18] MEDS ORDERED: ACETAMINOPHEN/HYDROcodone 325 MG/10 MG TAB PO PRN (15:30)
[2017-06-18] MEDS ORDERED: ACETAMINOPHEN 325 MG TAB PO PRN (15:30)
[2017-06-18] MEDS ORDERED: CYCLOBENZAPRINE HCL 10 MG TAB PO PRN (15:30)
[2017-06-18] MEDS ORDERED: MENTHOL LOZENGE BUCCAL PRN (15:30)
[2017-06-18] MEDS ORDERED: cloNIDine HCL 0.1 MG TAB PO/NG PRN (15:30)
[2017-06-18] MEDS ORDERED: ONDANSETRON HCL 4 MG/2 ML VIAL IV PUSH PRN (15:30)
[2017-06-18] MEDS ORDERED: MAGNESIUM HYDROXIDE SUSP 30 ML CUP PO PRN (15:30)
[2017-06-18] MEDS ORDERED: MORPHINE SULFATE 2 MG/ML INJ IV PUSH PRN ×2 (16:00)
[2017-06-18] MEDS: SODIUM CHLOR 0.9% 1000 ML INJ 1,000 ML IV SCH (17:30)
[2017-06-18] MEDS ORDERED: DO NOT ADM ANY ANTICOAGULANT DRUGS PRN (18:15)
--- NOTE | 2017-06-18 18:18 | RADRPT ---
EXAM DATE/TIME: 06/18/2017 14:53 [facility] COMPARISON: No previous studies available for comparison. EXTERNAL COMPARISON : [facility] INDICATIONS : T4,T5,T6 kyphoplasty. MEDICAL HISTORY : None. SURGICAL HISTORY : Fusion, lumbar. T and L spine kyphoplasty. ENCOUNTER: Initial ACUITY: 1 day PAIN SCORE: Non-responsive. LOCATION: Thoracic spine. FINDINGS: There is normal alignment of the thoracic vertebral bodies. Vertebral plasty change is noted at 3 con tiguous thoracic vertebra, reportedly T4, 5 and 6 with [id number] residual compression. CONCLUSION: 1. Kyphoplasty as above. Cristóbal Walker MD on June 18, 2017 at 18:15 Board Certified Radiologist. This report was verified electronically.
[2017-06-18 19:00] VITALS: PULSE 74
[2017-06-18 20:00] VITALS: BP 127/78; PULSE 101; PULSE 98; RESP 26; TEMP 98.2; O2SAT 96
[2017-06-18] MEDS: ceFAZolin 2 GM PREMIX 50 ML IV SCH (20:52)
[2017-06-18] MEDS: DOCUSATE SODIUM 100 MG CAP PO SCH (20:52)
[2017-06-18] MEDS: ACETAMINOPHEN/HYDROcodone 325 MG/10 MG TAB PO PRN (20:52)
[2017-06-18 22:00] VITALS: PULSE 100
[2017-06-19] VITALS (7 sets, daily range): BP systolic 107–125; BP diastolic 55–59; PULSE 81–100; RESP 12–14; TEMP 98–98.6; O2SAT 95–100
[2017-06-19] MEDS: SODIUM CHLOR 0.9% 1000 ML INJ 1,000 ML IV SCH ×2 (02:00→11:27)
[2017-06-19] MEDS: ceFAZolin 2 GM PREMIX 50 ML IV SCH ×2 (04:24→11:27)
[2017-06-19] MEDS: ACETAMINOPHEN/HYDROcodone 325 MG/10 MG TAB PO PRN (04:24)
[2017-06-19] MEDS: DOCUSATE SODIUM 100 MG CAP PO SCH (07:49)
[2017-06-19] MEDS ORDERED: PANTOPRAZOLE SOD 40 MG DELAYED RELEASE TAB PO SCH (09:00)
[2017-06-19] MEDS ORDERED: PERC5TAB12 PO (11:37)
--- NOTE | 2017-06-19 11:38 | HHI.DCPOC ---
Discharge Care Plan Diagnosis: (1) S/P kyphoplasty Goals to Promote Your Health * To prevent worsening of your condition and complications * To maintain your health at the optimal level Directions to Meet Your Goals Take your medications as prescribed Follow your dietary instruction Follow activity as directed Keep your appointments as scheduled Take your immunizations and boosters as scheduled If your symptoms worsen call your PCP, if no PCP go to Urgent Care Center or Emergency Room Smoking is Dangerous to Your Health. Avoid second hand smoke Call the 24-hour hour crisis hotline for domestic abuse at Jeanie Buchanan Jun 19, 2017 11:38
--- NOTE | 2017-06-19 11:39 | HHI.DS ---
Discharge Summary Admission Date Jun 18, 2017 at 15:23 Discharge Date: Jun 19, 2017 Admitting Diagnosis s/p Kyphoplasty (1) S/P kyphoplasty ICD Code: Z98.890 - Other specified postprocedural states Brief History Ms Murphy is a 82 year-old female with history of severe osteoporosis and multiple compression fractures in the past. She presented with intractable pain related to subacute compression fractures at T4, T5 and T6. She failed nonsurgical management for over 3 weeks. A kyphoplasty was indicated as the most appropriate form of treatment. CBC/BMP: 06/18/17 1035 06/18/17 1035 Significant Findings Laboratory Tests Test 06/18/17 10:35 Monocytes (%) (Auto) 8.7 % (0.0-8.0) Eosinophils (%) (Auto) 5.7 % (0.0-4.0) Alkaline Phosphatase 123 U/L (45-117) Aspartate Amino Transf (AST/SGOT) 12 U/L (15-37) Imaging Last Impressions Thoracic Spine X-Ray 06/18/17 0000 Signed Impressions: Service Date/Time: Sunday, June 18, 2017 14:53 - CONCLUSION: 1. Kyphoplasty as above. Cristóbal Walker MD Hospital Course Ms. Murphy underwent T4, T5, T6 kyphoplasty on 06/18/17. She reports improvement of her prior thoracic pain postoperatively. She denies new neurological complaints. She was discharged home in stable conditions. Wound care and activity restrictions were discussed. Pt Condition on Discharge: Good Discharge Disposition: Discharge Home Discharge Instructions DIET: Follow Instructions for: Heart Healthy Diet ACTIVITIES You can perform: Weight Bearing As Kathie ADDITIONAL Activity Instructio: Avoid strenuous activities, heavy lifting over 5 lbs, overhead activities, repetitive bending, twisting, pushing, pulling or any activities which might result in stress over the spine. Avoid situation that will put at risk for falls. Use assistive device as needed for walking. Wear TLSO brace when out of bed. New Medications: Oxycodone-Acetaminophen (Percocet) 5-325 mg Tab 1-2 TAB PO Q8H PRN for PAIN, #60 TAB 0 Refills Continued Medications: Atenolol (Atenolol) 50 Mg Tab 50 MG PO DAILY for Blood Pressure Management, #30 TAB 0 Refills Donepezil (Donepezil) 23 Mg Tab 23 MG PO HS for Dementia, #30 TAB 0 Refills Do not split, crush or chew. Escitalopram (Escitalopram) 10 Mg Tab 10 MG PO DAILY, #30 TAB 0 Refills Gabapentin (Gabapentin) 600 Mg Tab 600 MG PO BID, #60 TAB 0 Refills Hydrocodone-Acetaminophen (Hydrocodone-Acetaminophen) 5-325 mg Tab 1 TAB PO Q12HR PRN for PAIN SCALE 6 TO 10, #60 TAB Losartan (Losartan) 50 Mg Tab 50 MG PO HS for Blood Pressure Management, #30 TAB 0 Refills Simvastatin (Simvastatin) 20 Mg Tab 20 MG PO HS for Cholesterol Management, #30 TAB 0 Refills Tramadol (Ultram) 50 Mg Tab 50 MG PO DAILY PRN for PAIN, #90 TAB 0 Refills Zolpidem (Zolpidem) 10 Mg Tab 10 MG PO HS PRN for INSOMNIA, TAB 0 Refills Jeanie Buchanan Jun 19, 2017 11:39
--- NOTE | 2017-06-19 12:14 | PD.OP ---
Operative Report Date of Surgery: Jun 18, 2017 Preoperative Diagnosis: T4, T5, T6 osteoporotic compression fractures Postoperative Diagnosis: T4, T5, T6 osteoporotic compression fractures Procedure: T4, T5, T6 kyphoplasty Anesthesia: general Surgeon: Daniel Clarke Byproducts Extractor(s): ESTELA Operation and Findings: INDICATIONS FOR THE PROCEDURE Ms Murphy is a 82 year-old female with history of severe osteoporosis and multiple compression fractures in the past. She presented with intractable pain related to subacute compression fractures at T4, T5 and T6. She failed nonsurgical management for over 3 weeks. A kyphoplasty was indicated as the most appropriate form of treatment. The [id number] details of the procedure, indications, alternatives, risks and potential complications were fully discussed with the patient. The patient fully understood. All The questions were answered. No guarantees were given. The patient voiced requesting the procedure and provided informed consents. The patient was offered the alternative of delaying the procedure and continuing with nonsurgical management. DETAILS OF THE SURGICAL PROCEDURE The patient was brought to the operating room and after the induction of general anesthesia, endotracheal intubation was performed. The patient was positioned prone on the Tha table over gel rods. All pressure points were carefully padded with egg crate mattress. The eyes were tapped shut after ointment was applied by the anesthesiologist to prevent corneal abrasion. A Jesus hugger was placed over the exposed lower body to maintain control of the core body temperature. The lumbar region was prepped and draped in the usual sterile fashion. The C-arms were brought to the field and simultaneous AP and lateral x-rays were obtained. The levels were carefully counted and the pedicles were marked over the skin. An entry point was selected 1 centimeter superior and 1 centimeter lateral to the pedicle of T5. Two small incisions were outlined on the skin and infiltrated with 1% lidocaine with epinephrine in 1:100,000 dilution. Initially, two small skin incisions were made with a #11 blade. Then , Jamshidi needles were carefully advanced to the entrance of the pedicle, and then into the vertebral body T5 under continuous fluoroscopic guidance. A drill was used to create a trough into the vertebral body to insert a Balloon. Once the cannula was located through the pedicle, the drill was removed and bilateral balloons were inserted into the T5 vertebral body. A careful expansion of the balloon under continuous fluoroscopic guidance and manometric evaluation allowed expansion of the vertebral body. Then, the procedure was repeated in the same fashion at T6, the next symptomatic level. The skin incisions were made with a #11 blade. Then, Jamshidi needles were carefully advanced to the entrance of the pedicle of T6, and then into the vertebral body under continuous fluoroscopic guidance. The needles were advanced. A drill was used to create a trough into the vertebral body and to insert a balloon. Once the cannula was located through the pedicle , the drill was removed and bilateral balloons were inserted into the vertebral body for vertebral augmentation. A careful expansion of the balloon under continuous fluoroscopic guidance and manometric evaluation allowed expansion of the vertebral body T6. Then, the procedure was repeated in the same fashion at T4, the next symptomatic level. The skin incisions were made with a #11 blade. Then, Jamshidi needles were carefully advanced to the entrance of the pedicle of T4, and then into the vertebral body under continuous fluoroscopic guidance. The needles were advanced. A drill was used to create a trough into the vertebral body and to insert a balloon. Once the cannula was located through the pedicle , the drill was removed and bilateral balloons were inserted into the vertebral body for vertebral augmentation. A careful expansion of the balloon under continuous fluoroscopic guidance and manometric evaluation allowed expansion of the vertebral body T4. Then, the balloons were deflated and carefully removed and the voids created in the vertebral bodies were filled with bone cement. A very good expansion of the vertebral bodies was achieved with minimal extravasation and no complications. The cannulas were then removed. The incisions were closed using a single stitch at each incision. Dermabond was applied to the skin. At the end of the procedure, the sponge, needle, instrument counts correct. The estimated blood loss as minimal. No intraoperative complications occurred. The patient received prophylactic antibiotics. The patient was then extubated and transferred to the recovery room in stable condition. Daniel Clarke MD Jun 19, 2017 12:14
== END 2017-06-19 12:48 | disposition home or self-care (01) ==
LOC: HSDC 09:56 → HSDI 15:23 → N03B 18:17
PROVIDERS: ADMIT Neurological Surgery; ATTEND Neurological Surgery
DX: M80.88XA Other osteoporosis with current pathological fracture, vertebra(e), initial encounter for fracture (principal); I10 Essential (primary) hypertension; R06.83 Snoring; R20.0 Anesthesia of skin; E78.00 Pure hypercholesterolemia, unspecified; Z01.818 Encounter for other preprocedural examination
CPT/HCPCS: 01936; 22513; 22515; 72070; 80053; 85025; 85610; 85730; 87640; 87641; 88307; 88311; 94150; 96365; 97162; G0378; G8987; G8988; J0131; J0690; J1100; J2370; J2405; J3010; J7030; J7120; L0200; L0484

== ENCOUNTER 2018-01-11 14:14 | Observation (INO) ==
[~2018-01-11 14:14] MED LIST changes: -ACET325T15 PO; -ATEN50TA PO; -DONE1TAB63 PO; -GABA600T PO; +Glycopyrrolate Inj 1 MG/5 ML Syringe IV.PUSH ONE; -HYDR-3516 PO; -LOSA50TA PO; +Lidocaine PF 1% Inj 5 ML Syringe INFILTRATN ONE; +Phenylephrine/NS 1000 MCG/10ML Syringe IV.PUSH ONE; -SIMV20TA PO; +Succinylcholine Inj 100 MG/5 ML Syringe IV.PUSH ONE; -TRAM50 PO; -TRAM50TA PO
[2018-01-11] MEDS ORDERED: Metoprolol Tartrate 25 MG Tablet PO SCH (14:45)
[2018-01-11] MEDS ORDERED: Chlorhexidine Gluconate 2% 1 Pack (2 Cloths) TOPICAL SCH (14:45)
[2018-01-11] MEDS ORDERED: ceFAZolin 2 GM IV; once IV.SIG SCH (15:00)
[2018-01-11] MEDS ORDERED: Sodium Chlor 0.9% Inj 500 ML IV.SIG SCH (15:00)
[2018-01-11 15:35] LABS: Baso % (Auto) 0.5 % (0.0-2.0); Eos # (Auto) 0.1 th/mm3 (0.0-0.4); Eos % (Auto) 1.7 % (0.0-4.0); Hematocrit 47.6 % (35.0-46.0); Hemoglobin 16.3 gm/dL (11.6-15.3); Lymph # (Auto) 1.6 th/mm3 (1.0-4.8); Lymph % (Auto) 18.8 % (9.0-44.0); Mean Corpuscular HGB Conc 34.2 % (32.0-36.0); Mean Corpuscular Volume 99.2 fL (80.0-100.0); Mean Platelet Volume 8.3 fL (7.0-11.0); Mono # (Auto) 0.8 th/mm3 (0.0-0.9); Mono % (Auto) 9.6 % (0.0-8.0); Neut # (Auto) 5.8 th/mm3 (1.8-7.7); Neut % (Auto) 69.4 % (16.0-70.0); Platelet Count 253 th/mm3 (150-450); Red Cell Distribution Width 13.2 % (11.6-17.2); White Blood Count 8.3 th/mm3 (4.0-11.0)
[2018-01-11 15:49] LABS: Activated Partial Thrombo Time 24.7 sec (24.3-30.1); INR 1.1 Ratio; Prothrombin Time 10.7 sec (9.8-11.6)
[2018-01-11 15:51] LABS: Albumin 3.8 g/dL (3.4-5.0); Anion Gap 7 meq/L (5-15); Aspartate Aminotransferase 30 U/L (15-37); Blood Urea Nitrogen 19 mg/dL (7-18); Calcium 9.7 mg/dL (8.5-10.1); Chloride 100 meq/L (98-107); Glomerular Filtration Rate 73 mL/min (>89); Glucose,Random 92 mg/dL (74-106); Potassium 3.8 meq/L (3.5-5.1); Sodium 139 meq/L (136-145)
[2018-01-11 15:54] LABS: Alanine Aminotransferase 51 U/L (10-53); Alkaline Phosphatase 93 U/L (45-117); Total Protein 7.7 g/dL (6.4-8.2)
[2018-01-11] MEDS ORDERED: Bupivacaine/Epinephrine 0.5% Inj 50 ML Vial ONE ×2 (16:41→16:52)
[2018-01-11] MEDS ORDERED: Bisacodyl 10 MG Supp RECTAL PRN (17:01)
[2018-01-11] MEDS ORDERED: Acetaminophen 325 MG Tablet PO PRN (17:01)
--- NOTE | 2018-01-11 18:28 | P.OP ---
Date of procedure: 01/11/18 Procedure: T7 kyphoplasty Surgeon: Daniel Clarke MD Binder Coverstitch: ESTELA Pathology: none sent Operation and Findings: INDICATIONS FOR THE PROCEDURE Ms Murphy is a 82 year-old female who presented with intractable pain related to a compression fracture. The patient has failed nonsurgical management and a kyphoplasty was indicated as the most appropriate form of treatment. The [id number] details of the procedure, indications, alternatives, risks and potential complications were fully discussed with the patient. The patient fully understood. All The questions were answered. No guarantees were given. The patient voiced requesting the procedure and provided informed consents. The patient was offered the alternative of delaying the procedure and continuing with nonsurgical management. DETAILS OF THE SURGICAL PROCEDURE The patient was brought to the operating room and after the induction of general anesthesia, endotracheal intubation was performed. A Dozier catheter and bilateral JORDON hose and sequential compression devices were placed and kept throughout the procedure. The patient was positioned prone on the Tha table over gel rods. All pressure points were carefully padded with egg crate mattress. The eyes were tapped shut after ointment was applied by the anesthesiologist to prevent corneal abrasion. A Jesus hugger was placed over the exposed lower body to maintain control of the core body temperature. The lumbar region was prepped and draped in the usual sterile fashion. The C-arms were brought to the field and simultaneous AP and lateral x-rays were obtained. The levels were carefully counted and the pedicles were marked over the skin. An entry point was selected 1 centimeter superior and 1 centimeter lateral to the pedicle. Two small incisions were outlined on the skin and infiltrated with 1% lidocaine with epinephrine in 1:100 ,000 dilution. Initially, two small skin incisions were made with a #11 blade. Then, Jamshidi needles were carefully advanced to the entrance of the pedicle of T7, and then into the vertebral body under continuous fluoroscopic guidance. A drill was used to create a trough into the vertebral body T7 to insert a cannula. Once the cannula was located through the pedicle, the drill was removed and bilateral balloons were inserted into the vertebral body for vertebral augmentation. A careful expansion of the balloon under continuous fluoroscopic guidance and manometric evaluation allowed expansion of the vertebral body. Then, the balloons were deflated and carefully removed and the voids created in the vertebral body were filled with bone cement under fluoroscopic visualization. A very good filling of the vertebral bodies was achieved without complications. The cannulas were then removed. The incisions were closed using a single stitch at each incision. Dermabond was applied to the skin. At the end of the procedure, the sponge, needle, instrument counts correct. The estimated blood loss as minimal. No intraoperative complications occurred. The patient received prophylactic antibiotics. The patient was then extubated and transferred to the recovery room in stable condition.
[2018-01-11] MEDS ORDERED: *morphine SULFATE 4 MG/ML PERIprocedure ONLY ONE ×2 (18:52→21:51)
--- NOTE | 2018-01-11 19:14 | XR ---
EXAM DATE: 01/11/2018 7:11 PM EDT AGE/SEX: 82 years / Female INDICATIONS: T7 kyphoplasty. CLINICAL DATA: This is the patient's initial encounter. Patient reports that signs and symptoms have been present for 1 day and indicates a pain score of Nonresponsive. MEDICAL/SURGICAL HISTORY: None. . T4 to t6 kyphoplasty. COMPARISON: [facility] – [place], SPINE THORACIC LATERAL ONLY, 12/04/2011. . FINDINGS: Spot films of the thoracic spine reveal kyphoplasty changes across 4 contiguous levels with residual moderate compression deformities. CONCLUSION: Kyphoplasty as above. Electronically signed by: Cristóbal Walker MD 01/11/2018 7:13 PM EDT
[2018-01-11] MEDS: Senna/Docusate Sodium 8.6/50 MG Tablet PO SCH (21:53)
[2018-01-11] MEDS: Gabapentin 300 MG Capsule PO SCH (21:53)
[2018-01-12] MEDS: Senna/Docusate Sodium 8.6/50 MG Tablet PO SCH (08:08)
[2018-01-12] MEDS: Gabapentin 300 MG Capsule PO SCH (08:08)
[2018-01-12] MEDS ORDERED: Atenolol 50 MG Tablet PO SCH (09:00)
[2018-01-12 12:16] VITALS: BP 142/66; PULSE 77; TEMP 98.2; O2SAT 92
[2018-01-12 12:57] VITALS: RESP 20
--- NOTE | 2018-01-12 13:19 | P.DS ---
Date of admission: 01/11/18 17:01 Primary care physician: Maricruz Dowling DO Brief History from admission: Ms Murphy is a 82 year-old female who presented with intractable pain related to a compression fracture. The patient has failed nonsurgical management and a kyphoplasty was indicated as the most appropriate form of treatment. DS: Medications - Discharge Medications Prescriptions: hydrocodone-acetaminophen 1 tab PO Q4-6H PRN 3 Days #15 tab PRN Reason: Pain DS: Summary Hospital Course: Ms. Mccormick underwent a T7 kyphoplasty 01/11/18. She will be discharged home in stable conditions. - Time Spent with Patient Total time spent providing and/or coordinating discharge services: Exam Vital signs: Vital Signs 01/11/18 14:51 01/11/18 18:40 01/11/18 18:45 Temperature 98.4 F 97.8 F Pulse Rate 62 96 H 86 Respiratory Rate 20 16 16 Blood Pressure 135/73 138/64 142/68 H Pulse Oximetry 93 L 98 98 01/11/18 19:00 01/11/18 19:15 01/11/18 19:30 Temperature Pulse Rate 85 76 75 Respiratory Rate 18 18 18 Blood Pressure 135/67 136/67 124/72 Pulse Oximetry 99 98 01/11/18 20:16 01/11/18 21:00 01/11/18 22:00 Temperature 97.4 F L Pulse Rate 68 59 L 78 Respiratory Rate 18 19 18 Blood Pressure 130/60 149/70 H 115/74 Pulse Oximetry 95 95 94 L 01/12/18 00:00 01/12/18 04:00 01/12/18 08:00 Temperature 97.8 F 97.6 F 96.1 F L Pulse Rate 82 72 90 Respiratory Rate 18 18 18 Blood Pressure 140/70 137/62 120/63 Pulse Oximetry 94 L 94 L 94 L 01/12/18 10:18 01/12/18 12:00 01/12/18 12:56 Temperature 98.2 F Pulse Rate 77 Respiratory Rate 17 20 Blood Pressure 142/66 H Pulse Oximetry 93 L 92 L Intake & Output 01/11/18 01/12/18 01/12/18 18:59 06:59 18:59 Intake Total 50 / 50 2490 / 2490 Output Total 5 / 5 Balance 50 / 50 2485 / 2485 Weight 61.5 kg 61.5 kg Intake: IV 50 / 50 1100 / 1100 NS + KCl 20 mEq Inj 1,000 ML @ 1000 / 1000 100 mls/hr IV.CONT .Q10H RAUL Rx #:[id number] Ancef 2 GM Premix Inj 2 gm In 50 / 50 50 ml @ 100 mls/hr IV.SIG MULTICULT[employer]NS[employer] RAUL Rx#:[id number] Ancef Inj 1,000 MG In NS Inj 100 / 100 100 ML @ 200 mls/hr IV.SIG Q8H RAUL Rx#:[id number] Oral 990 / 990 Anesthesia Amount 400 / 400 Output: Estimated Blood Loss 5 / 5 Other: # Voids 3 Date of Last Bowel Movement 02/11/18 Weight On Admission 61.5 kg Results Procedures completed during hospitalization: T7 kyphoplasty Labs on day of discharge: Labs from last 24 hours 01/11/18 01/11/18 01/11/18 14:50 14:50 14:50 WBC 8.3 RBC 4.80 Hgb 16.3 H Hct 47.6 H MCV 99.2 MCH 34.0 MCHC 34.2 RDW 13.2 Plt Count 253 MPV 8.3 Neut % (Auto) 69.4 Lymph % (Auto) 18.8 [place] % (Auto) 9.6 H Eos % (Auto) 1.7 Baso % (Auto) 0.5 Neut # (Auto) 5.8 Lymph # (Auto) 1.6 [place] # (Auto) 0.8 Eos # (Auto) 0.1 Baso # (Auto) 0.0 WBC Differential . Differential Comment Auto diff final PT 10.7 INR 1.1 APTT 24.7 Sodium 139 Potassium 3.8 Chloride 100 Carbon Dioxide 32.0 Anion Gap 7 BUN 19 H Creatinine 0.76 Estimated GFR 73 L Random Glucose 92 Calcium 9.7 Total Bilirubin 0.5 AST 30 ALT 51 Alkaline Phosphatase 93 Total Protein 7.7 Albumin 3.8 - Impressions ITS Impressions Thoracic Spine X-Ray 01/11/18 00:00 CONCLUSION: Kyphoplasty as above. Discharge Plan - Physicians Team Primary Care Provider: Maricruz Dowling Attending Provider: Daniel Clarke - Rxs /Orders / Referrals /Forms Prescriptions: New hydrocodone-acetaminophen 5-325 mg Tablet 1 tab PO Q4-6H PRN (Reason: Pain) 3 Days Qty: 15 Continue atenolol 50 mg Tablet 50 mg PO DAILY donepezil 23 mg Tablet 23 mg PO HS gabapentin 600 mg Tablet 600 mg PO BID zolpidem 10 mg Tablet 10 mg PO HS PRN (Reason: Insomnia) Referrals: Maricruz Dowling DO [Primary Care Provider] - See Instructions - Discharge Instructions Patient Printed Instructions: Hydrocodone/Acetaminophen (By mouth), Kyphoplasty (DC), Vertebroplasty (DC) - Post Discharge Care Plan Care Plan Goals: Your Health Problems: Goals to Promote Your Health: * To prevent worsening of your condition * To maintain your health at the optimal level Directions to Meet Your Goals: * Take your medications as prescribed * Follow your dietary instruction * Follow activity as directed * Keep your appointments as scheduled * Take your immunizations and boosters as scheduled * If your symptoms worsen call your PCP * If no PCP go to Urgent Care or Emergency Room Smoking is dangerous to your health. Avoid second hand smoke. You may reach the 24-hour crisis hotline for domestic abuse at .
== END 2018-01-12 14:01 | disposition home or self-care (01) ==
LOC: N06 14:14 → HSDI 14:14 → HOR 14:14 → N06 22:22
PROVIDERS: ADMIT Neurological Surgery; ATTEND Neurological Surgery